=== PATIENT | female | born 1950 | race Caucasian/White ===

== ENCOUNTER 2021-04-13 11:47 | Outpatient (CLI) | payer MEDICARE, MEDICAID, SELFPAY ==
[2021-04-13 13:52] LABS: Add Urine Microscopic? NO; Appearance Urine Clear (Clear); Bilirubin Urine Negative (Negative); Blood Urine Negative (Negative); Color Urine Yellow (Yellow); Glucose Urine UA Negative (Negative); Ketones Urine Negative (Negative); Leukocyte Esterase Ur Negative LEU/UL (Negative); Nitrate Urine Negative (Negative); Protein Urine Negative (Negative); Specific Grav Ur 1.018 (1.001-1.035); Urobilinogen Urine Negative mg/dL (<2.0)
[2021-04-13 14:15] LABS: Prothrombin Time 13.1 Seconds (11.1-14.7)
[2021-04-13 14:23] LABS: Urine Cotinine NEGATIVE
== END 2021-04-13 11:48 | disposition home or self-care (01) ==
LOC: ANHSURGERY 11:56
PROVIDERS: PCP Internal Medicine; Visit Provider Orthopaedic Surgery
DX: Z01.812 Encounter for preprocedural laboratory examination (principal); M17.11 Unilateral primary osteoarthritis, right knee; Z51.81 Encounter for therapeutic drug level monitoring; Z79.899 Other long term (current) drug therapy
CPT/HCPCS: 80307; 81003; 85610; 85730; 86850; 86900; 86901; 87081

== ENCOUNTER 2021-04-26 13:49 | Inpatient (IN) | payer MEDICARE, MEDICAID, SELFPAY ==
[2021-04-13 12:41] VITALS: BMI 39.6
--- NOTE | 2021-04-24 14:14 | WPDANESEPPF ---
Anes - Initial Pre Proc Eval Procedure: Operation Date: 04/25/21 11:30 Proposed Procedures p Right Total Knee Arthroplasty, Right Wrist First Dorsal Compartment Injection - Monster Toure MD Date/Time: 04/24/21 14:14 Surgeon: Monster Toure MD Pre Op Diagnosis: Right knee DJD, Dequervains Tenosynovitis Patient Data Age: 70 Gender: F Height: 1.57 m Weight: 98.4 kg Allergies Allergy/AdvReac Type Severity Reaction Status Date / Time lisinopril Allergy Severe RASH Verified 04/25/21 09:46 Sulfa (Sulfonamide Allergy Severe RASH Verified 04/25/21 09:46 Antibiotics) acetaminophen Allergy Unknown SWELLING & Verified 04/25/21 09:46 ITCHING FEET hydrochlorothiazide Allergy Unknown unknown Verified 04/25/21 09:46 Home Medications Medication Instructions Recorded Confirmed Type aspirin 81 mg chewable tablet 81 mg PO DAILY 04/12/20 04/25/21 History chlorthalidone 50 mg tablet 50 mg PO QAM 04/12/20 04/25/21 History famotidine 40 mg tablet 40 mg PO BID 04/12/20 04/25/21 History gabapentin 300 mg capsule 300 mg PO QAM cap 04/12/20 04/25/21 History lovastatin 10 mg tablet 10 mg PO QPM 04/12/20 04/25/21 History metformin 500 mg tablet 500 mg PO DAILY 04/12/20 04/25/21 History metoprolol tartrate 25 mg tablet 25 mg PO BID 04/12/20 04/25/21 History nifedipine 90 mg tablet,extended 90 mg PO QAM 04/12/20 04/25/21 History release spironolactone 50 mg tablet 50 mg PO QAM 04/12/20 04/25/21 History topiramate 50 mg capsule,extended 50 mg PO BID cap 04/12/20 04/25/21 History release 24 hr cholecalciferol (vitamin D3) 50 mcg PO DAILY 04/13/21 04/25/21 History gabapentin 600 mg PO HS 04/13/21 04/25/21 History ibuprofen 600 mg PO HS PRN 04/13/21 04/25/21 History oxybutynin chloride 10 mg PO QAM 04/13/21 04/25/21 History Patient hx anesthesia problems: none Family hx anesthesia problems: none PMFSH Past Medical History Medical History (Updated 04/24/21 @ 14:16 by Xiang Fisher MD) Diabetes HTN (hypertension) Hyperlipidemia Obesity BINH (obstructive sleep apnea) Osteoarthritis Surgical History Surgical History Hx of total knee arthroplasty S/P right knee arthroscopy Family History Family History Other Cerebrovascular accident Diabetes mellitus Family history of cardiovascular disease Family history of malignant neoplasm Hypertension Social History Social History (Updated 02/27/21 @ 15:10 by Monica Mina MA) Alcohol intake: current Alcohol use details: SOCIAL DRINKER IN PAST Substance use: never Living arrangements: with family Additional living arrangements comments: EX- Gender identity (if verbalized by the patient): Female Spiritual care concerns: No Anes - Eval Final PreProcedure Day of Procedure 04/24/21 14:14 Patient weight: obese Heart: regular rate and rhythm Lungs: clear to auscultation and normal air movement Airway: Mallampati scale class II Neurological: alert and oriented Last oral intake: >/= 8 hours ASA classification: III Emergent: no Anesthetic plan: proceed Anesthesia type and monitoring: general LMA Informed Consent: The patient's anesthetic plan and its attendant risks and benefits were discussed with the patient/family/POA. Questions were solicited and answers provided to the satisfaction of the patient/family/POA.
[2021-04-25] VITALS (15 sets, daily range): BP systolic 111–140; BP diastolic 55–82; PULSE 51–88; RESP 10–21; TEMP 36.3–36.6; O2SAT 95–100
--- NOTE | 2021-04-25 08:28 | WPDHPUPDATE1 ---
History and Physical Update Update Date/Time: 04/25/21 08:28 History and Physical has been reviewed, including an updated exam of the patient. There are NO changes in the patient's condition. Risks, benefits, and alternatives have been discussed and questions answered. Patient agrees to proceed with procedure.
[2021-04-25] MEDS: LACTATED RINGERS 1,000 ML 30 ML IV CONT ×2 (10:10→13:42)
[2021-04-25] MEDS: TRANEXAMIC ACID 1,000MG/ISO100 1,000 MG/100 ML BAG 200 MG IVPB (10:12)
[2021-04-25 10:18] LABS: Glucose Point of Care 103 mg/dl (65-105)
--- NOTE | 2021-04-25 11:08 | WPDANESPNB ---
Anes - Peripheral Nerve Block Date/Time: 04/25/21 11:08 I have discussed with the patient/family/POA the placement of a peripheral nerve block for post-operative pain management, including associated risks, benefits, complications, and side effects. Alternative methods of post-operative analgesia were detailed. Questions were solicited and answers provided to the satisfaction of the patient/family/POA. Time-Out: A pre-procedural Time-Out was completed immediately before starting the procedure and confirmed: Patient Identification, Site, Procedure, Patient Position and the Availability of Requisite Equipment. Clinical Indications: Acute post-operative pain management requested by the operative surgeon. Nerve Block Insertion Note Anes-nerve block: adductor canal right Patient position: supine Skin prep: chlorhexidine Needle: 22 gauge, stimulating, insulated echogenic needle. Needle length: 80 mm Technique: ultrasound Technique comment: in plane Injectate: bupivacaine 0.5% with epi 5 mcg/ml (20cc) Observations: tolerated well Complications: none Procedure start time:: 1115 Procedure end time:: 1120
[2021-04-25] MEDS: ceFAZolin 2 GM/D5W 50 ML 2 GM/50 ML BAG IVPB ×2 (11:23→19:53)
--- NOTE | 2021-04-25 13:44 | W.PM.PROC2 ---
Procedure Note - Detailed Date of Procedure 04/25/21 Pre-op Diagnosis Right knee DJD, Dequervains Tenosynovitis Post-op Diagnosis same Procedure Performed R TKA INJECTION RIGHT THUMB Surgeon Monster Toure MD Anesthesia general Description of Procedure THE RIGHT KNEE WAS PREPPED AND DRAPED IN THE STERILE FASHION. THERE WAS A 10 DEGREE FLEXION CONTRACTURE. A MIDLINE SKIN INCISION WAS MADE. A MEDIAL PARAPATELLAR ARTHROTOMY WAS MADE. THE PATELLA WAS EVERTED. THERE WAS TRICOMPARTMENT DJD. THERE WAS MINIMAL PATELLA DJD. AN INTRAMEDULLARY LARY WAS PLACED IN THE FEMUR. A DISTAL FEMORAL CUT WAS MADE IN 5 DEGREES OF VALGUS REMOVING APPROXIMATELY 9 MM OF BONE FROM THE DISTAL FEMUR. THE FEMUR WAS SIZED TO 62.5. A 62.5 FEMORAL CUTTING BLOCK WAS PLACED IN 3 DEGREES OF EXTERNAL ROTATION AND IN ALIGNMENT WITH TREVIN'S LINE AND THE TRANSEPICONDYLAR AXIS. ANTERIOR POSTERIOR AND CHAMFER CUTS WERE MADE. THE CUTS WERE EXCELLENT. NEXT AN INTRAMEDULLARY CUTTING GUIDE WAS PLACED IN THE TIBIA. A TRANS TIBIAL CUT WAS MADE ALONG THE LONG AXIS OF THE TIBIA. APPROXIMATELY 10 MM OF BONE WAS REMOVED FROM THE HIGH SIDE OF THE TIBIA. THE TIBIA WAS THEN PLANED TO A SMOOTH SURFACE. POSTERIOR FEMORAL OSTEOPHYTES WERE REMOVED FROM THE FEMORAL CONDYLES. A 71 TIBIAL TRIAL WAS PLACED IN ALIGNMENT WITH THE 1/3 MEDIAL ASPECT OF THE TIBIAL TUBERCLE. THEN A 62.5 FEMORAL TRIAL COMPONENT WAS PLACED. BOTH HAD EXCELLENT FITS. EVENTUALLY A 10 MM CR POLYETHYLENE TRIAL COMPONENT WAS PLACED. THE KNEE WAS TAKEN THROUGH A RANGE OF MOTION. THE KNEE CAME OUT TO FULL EXTENSION. THERE WAS NO ABNORMAL TILT TO THE PATELLA. THERE WAS GOOD A/P AND VARUS/VALGUS STABILITY. THERE WAS NO EXCESSIVE ROLL BACK WITH FLEXION. THE TRIAL COMPONENTS WERE REMOVED. THEN A 62.5 FEMORAL COMPONENT AND 71 TIBIAL COMPONENT WITH A 10 CR POLYETHYLENE COMPONENT WERE CEMENTED INTO PLACE. ONCE THE CEMENT WAS HARD THE KNEE WAS TAKEN THROUGH A ROM AGAIN AND FOUND TO BE STABLE WITH NO PATELLA TILT NO EXCESSIVE ROLL BACK WITH FLEXION AND GOOD STABILITY WITH COMPLETE AND FULL EXTENSION. THE KNEE WAS IRRIGATED WITH STERILE BETADINE AND WATER FOR ABOUT 3 MINUTES. THE BLEEDERS WERE CAUTERIZED. THE ARTHROTOMY WAS REPAIRED WITH NUMBER 1 VICRYL. THE SUB CUTANEOUS LAYER WITH 2-0 VICRYL AND THE SKIN WITH CATARINA. THE WOUND WAS WASHED AND A STERILE DRESSING WAS APPLIED. NEXT THE RIGHT 1ST DORSAL COMPARTMENT OF THE THUMB WAS PREPPED AND INJECTED WITH DEPO MEDROL 80 MG 1 CC AND 1 CC OF LIDOCAINE 1%. PATIENT WAS EXTUBATED. Estimated Blood Loss -150.0 Pathology none sent Complications No immediate complications Condition stable Disposition PACU
[2021-04-25] MEDS: fentaNYL CITRATE INJ (*CRX) 100 MCG/2 ML VIAL 25 MCG IV PUSH ×5 (13:59→14:41)
[2021-04-25 14:27] LABS: Glucose Point of Care 130 mg/dl (65-105)
--- NOTE | 2021-04-25 16:00 | ADMGEN ---
This patient, Twila Oliva, was admitted to Medical Room 254-01. Patient/family oriented to hospital policies and general routines including ID bracelet, bed and alarms, visiting hours, pain management, procedures, bathroom and other care routines, personal items, smoking policy, room service/diet, and visiting hours. Information on how to activate the Rapid Response Team has been discussed. Patient/Family are encouraged to report perceived risks to care and to ask questions if they do not understand what they are told or what they should do.
--- NOTE | 2021-04-25 16:15 | WPDCN ---
Assessment and Plan Assessment and plan (1) Right knee DJD: Qualifiers: Osteoarthritis type: primary Qualified Code(s): M17.11 - Unilateral primary osteoarthritis, right knee Code(s): M17.11 - Unilateral primary osteoarthritis, right knee Status: Acute Assessment and Plan: Postoperative day 0 status post right total knee replacement. Wound care, pain control, and DVT prophylaxis deferred to Dr. Toure. PT/OT consulted. Initiate fall precautions. Repeat hemoglobin and hematocrit in a.m. (2) Type 2 diabetes mellitus: Code(s): E11.9 - Type 2 diabetes mellitus without complications Status: Acute Assessment and Plan: Resume metformin on discharge. Check hemoglobin A1c. Initiate sliding scale insulin, Accu-Cheks, and hypoglycemic protocol. (3) Hypertension: Code(s): I10 - Essential (primary) hypertension Status: Acute Assessment and Plan: Blood pressures were reviewed and they are stable postoperatively. Continue antihypertensives and monitor daily. (4) Obstructive sleep apnea on CPAP: Code(s): G47.33 - Obstructive sleep apnea (adult) (pediatric); Z99.89 - Dependence on other enabling machines and devices Status: Acute Assessment and Plan: CPAP will be provided for the patient to use while hospitalized. (5) Hyperlipidemia: Code(s): E78.5 - Hyperlipidemia, unspecified Status: Acute Assessment and Plan: Continue statin and check LFTs. (6) Gastroesophageal reflux disease: Code(s): K21.9 - Gastro-esophageal reflux disease without esophagitis Status: Acute Assessment and Plan: No acute issues. Continue famotidine. (7) De Quervain's disease (tenosynovitis): Code(s): M65.4 - Radial styloid tenosynovitis [de Quervain] Status: Acute Assessment and Plan: Status post injection to right thumb/wrist. Additional Plan Thank you for allowing us to participate in this patient's care. Please do not hesitate to contact us with any questions. Supervising physician for this medical consultation is Dr. Moncho Scruggs. HPI Data of Consult Date/Time: 04/25/21 16:15 Requesting Physician: Monster Toure MD Primary Care Provider: Micky Whitfield, Consult Narrative Narrative: This is a 70-year-old female with degenerative joint disease of the right knee status post elective right total knee arthroplasty today whom the hospitalist service has been consulted for management of her medical conditions postoperatively. Her medical history is also significant for bsx-xbboavi-mohbbvufv diabetes, hypertension, hyperlipidemia, GERD, and obstructive sleep apnea. She has had longstanding pain in her right knee not amenable to conservative outpatient treatment thus she elected for replacement today. Her surgery was performed under general anesthesia with no immediate complications documented an estimated blood loss of 150 mL. She also had an injection in her right thumb/wrist for de Quervain tenosynovitis. At the time my evaluation the patient is eating a late lunch and she has no specific complaints. Her pain is pretty well controlled and she has been up with the Lisa Steady to the bathroom without issue. She has not had fever, chills, sweats, chest pain, shortness of breath, nausea, or vomiting. No paresthesias, skin color, or temperature changes distal to the surgical site. Review of Systems Review of Systems: Narrative: Twelve systems were reviewed with pertinent positives and negatives as per HPI. No recent cold or flu symptoms. No exposure to those positive for COVID-19. Her diabetes is well controlled with a recent hemoglobin A1c of 5.9%. Except as documented, all other systems were reviewed and are negative. [facility] Past Medical History Medical History (Updated 04/25/21 @ 21:30 by Jake
[2021-04-25] MEDS: LOVASTATIN 10 MG TABLET PO (17:39)
[2021-04-25] MEDS: TOPIRAMATE 25 MG TABLET 50 MG PO (17:39)
[2021-04-25] MEDS: oxyCODONE HCL (*CRX) 5 MG TAB IR 10 MG PO (18:00)
[2021-04-25 18:15] LABS: Hemoglobin A1C 5.9 % (<5.7)
[2021-04-25 18:40] LABS: Glucose Point of Care 114 mg/dl (65-105)
[2021-04-25] MEDS: METOPROLOL TARTRATE 25 MG TABLET PO (20:39)
[2021-04-25] MEDS: GABAPENTIN 300 MG CAPSULE 600 MG PO (20:39)
[2021-04-25] MEDS: DOCUSATE SODIUM 100 MG CAPSULE PO (20:39)
[2021-04-25] MEDS: ASPIRIN 325 MG ENTERIC TABLET PO (20:39)
[2021-04-25] MEDS: FAMOTIDINE 20 MG TABLET 40 MG PO (20:40)
[2021-04-25 21:15] LABS: Glucose Point of Care 145 mg/dl (65-105)
[2021-04-25] MEDS: oxyCODONE/ACETAMINOPHEN (*CRX) 5-325 MG TABLET 1 TABLET PO (22:08)
[2021-04-26] VITALS (10 sets, daily range): BP systolic 121–138; BP diastolic 48–66; PULSE 61–79; RESP 16–20; TEMP 36.1–37; O2SAT 94–100
--- NOTE | ~2021-04-26 | XR_ITS ---
EXAMINATION: XR knee RT 2V DATE: 04/25/2021 13:53 INDICATION: Total right knee arthroplasty. Postop. TECHNIQUE: 2 views of right knee were obtained. COMPARISON: Right knee radiographs 02/27/2021 FINDINGS: There is a total right knee arthroplasty without patellar resurfacing in near-anatomic alig nment. No fracture. There is gas in the knee joint and soft tissues, consistent with recent surgery. Anterior skin mariah are noted. IMPRESSION: 1. Total right knee arthroplasty in near-anatomic alignment. Reviewed, dictated and finalized at location A.
[2021-04-26] MEDS: ceFAZolin 2 GM/D5W 50 ML 2 GM/50 ML BAG IVPB ×2 (04:10→11:24)
[2021-04-26] MEDS: oxyCODONE/ACETAMINOPHEN (*CRX) 5-325 MG TABLET 1 TABLET PO ×3 (04:12→17:18)
[2021-04-26 05:49] LABS: Basophils Percent Auto 0.1 % (0.2-1.2); Eosinophils Percent Auto 0.1 % (0-4.4); Hematocrit 37.2 % (37.0-47.0); Hemoglobin 11.9 g/dL (12.0-15.0); Immature Granulocyte Absolute 0.02 K/mm3 (0.00-0.031); Immature Granulocyte Percent A 0.2 % (0-0.5); Lymphocytes Absolute Auto 1.62 K/mm3 (0.9-3.2); Lymphocytes Percent Auto 19.3 % (18.3-44.2); Mean Corpuscular Hemoglobin 28.4 pg (26-34); Mean Corpuscular Volume 88.8 fl (80-100); Mean Platelet Volume 10.7 fl (7.4-10.4); Monocytes Absolute Auto 0.7 K/mm3 (0.1-0.6); Monocytes Percent Auto 8.7 % (2.6-8.5); Neutrophils Percent Auto 71.6 % (45.5-73.1); Platelet Count Result 181 k/mm3 (150-375); Red Blood Count 4.19 M/mm3 (4.2-5.4); Red Cell Distribution Width 13.8 % (11.5-14.5); White Blood Count 8.4 K/mm3 (4.5-10.0)
[2021-04-26 06:03] LABS: Alanine Aminotransferase 16 U/L (4-35); Albumin Level 3.6 g/dL (3.5-5.1); Alkaline Phosphatase 85 U/L (38-126); Anion Gap 7 mmol/L (8-16); Aspartate Amino Transferase 23 U/L (14-36); Bilirubin,Total 0.2 mg/dL (0.2-1.3); Blood Urea Nitrogen 18 mg/dL (7-17); Calcium 8.6 mg/dL (8.4-10.2); Carbon Dioxide 26 mmol/L (22-30); Chloride 104 mmol/L (98-107); Estimated CRCL calculation 47 ml/min; Estimated Glomerular Filt Rate 49; Glucose 124 mg/dL (65-105); Magnesium 1.6 mg/dL (1.6-2.3); Potassium 3.6 mmol/L (3.4-5.0); Sodium 137 mmol/L (137-145)
[2021-04-26 08:26] LABS: Glucose Point of Care 126 mg/dl (65-105)
[2021-04-26] MEDS: TOPIRAMATE 25 MG TABLET 50 MG PO ×2 (08:32→17:18)
[2021-04-26] MEDS: MAGNESIUM SULF 2 GM/WATER 50ML 2 GM/50 ML BAG IVPB (08:32)
[2021-04-26] MEDS: NIFEdipine 30 MG TAB.ER.24 90 MG PO (08:33)
[2021-04-26] MEDS: GABAPENTIN 300 MG CAPSULE PO (08:33)
[2021-04-26] MEDS: CHLORTHALIDONE 25 MG TABLET 50 MG PO (08:33)
[2021-04-26] MEDS: FAMOTIDINE 20 MG TABLET 40 MG PO ×2 (08:33→20:11)
[2021-04-26] MEDS: metFORMIN HCL 500 MG TABLET PO (08:34)
[2021-04-26] MEDS: DOCUSATE SODIUM 100 MG CAPSULE PO ×2 (08:34→20:12)
[2021-04-26] MEDS: ASPIRIN 325 MG ENTERIC TABLET PO ×2 (08:34→20:12)
[2021-04-26] MEDS: SPIRONOLACTONE 50 MG TABLET PO (08:34)
[2021-04-26] MEDS: METOPROLOL TARTRATE 25 MG TABLET PO ×2 (08:36→20:11)
[2021-04-26] MEDS: CHOLECALCIFEROL 1,000 UNITS TABLET 2000 UNITS PO (09:55)
--- NOTE | 2021-04-26 12:08 | PM.IMPN ---
Progress Note: A&P Assessment and Plan (1) Right knee DJD: Qualifiers: Osteoarthritis type: primary Qualified Code(s): M17.11 - Unilateral primary osteoarthritis, right knee Code(s): M17.11 - Unilateral primary osteoarthritis, right knee Status: Acute Assessment and Plan: POD#1 s/p right total knee replacement. Wound care, pain control, and DVT prophylaxis per orthopedic service. (2) Type 2 diabetes mellitus: Qualifiers: Diabetes mellitus shelter insulin use: without exterminator termite use Diabetes mellitus complication status: without complication Qualified Code(s): E11.9 - Type 2 diabetes mellitus without complications Code(s): E11.9 - Type 2 diabetes mellitus without complications Status: Acute Assessment and Plan: A1c 5.9%. Resume metformin at discharge. Continue to monitor with accu-cheks and adjust treatment as needed, cover with SSI. (3) Hypertension: Qualifiers: Hypertension type: unspecified Qualified Code(s): I10 - Essential (primary) hypertension Code(s): I10 - Essential (primary) hypertension Status: Acute Assessment and Plan: BPs reviewed, stable. Continue home metoprolol, spironolactone. Monitor BP and adjust treatment as needed. (4) Obstructive sleep apnea on CPAP: Code(s): G47.33 - Obstructive sleep apnea (adult) (pediatric); Z99.89 - Dependence on other enabling machines and devices Status: Acute Assessment and Plan: CPAP. (5) Hyperlipidemia: Qualifiers: Hyperlipidemia type: unspecified Qualified Code(s): E78.5 - Hyperlipidemia, unspecified Code(s): E78.5 - Hyperlipidemia, unspecified Status: Chronic Assessment and Plan: Continue home statin therapy. (6) Gastroesophageal reflux disease: Qualifiers: Esophagitis presence: without esophagitis Qualified Code(s): K21.9 - Gastro-esophageal reflux disease without esophagitis Code(s): K21.9 - Gastro-esophageal reflux disease without esophagitis Status: Acute Assessment and Plan: No acute issues. Continue famotidine. (7) De Quervain's disease (tenosynovitis): Code(s): M65.4 - Radial styloid tenosynovitis [de Quervain] Status: Chronic Assessment and Plan: Status post injection to right thumb/wrist. Subjective Date/time seen: 04/26/21 1145 Interval history: Ms. Oliva is a 70yo F seen in follow up POD#1 s/p right total knee arthroplasty. She is doing okay today but feels tired after working with therapy. She notes her right knee pain is pretty well-controlled at this time at rest. Ate some breakfast. No chest pain or shortness of breath, nausea or vomiting. Review of Systems Review of Systems: All systems reviewed & are unremarkable except as noted in HPI and below Exam Narrative: Exam Narrative: General: Well-developed female sitting up in bed eating lunch in no distress. HEENT: Wearing glasses. EOMI. Sclerae anicteric. Oral mucosa moist. Neck: Supple. Respiratory: Lungs are clear to auscultation bilaterally. Cardiovascular: Regular rate and rhythm with S1-S2. Gastrointestinal: Abdomen is soft, nontender, and nondistended with positive bowel sounds. Skin: Warm and dry. No rash or lesions on limited exam. Extremities: No cyanosis, clubbing, or significant edema. Radial and pedal pulses intact. Musculoskeletal: Right knee dressing noted. Ice pack to right knee. Right lower extremity is neurovascularly intact distal to the surgical site. Neurological: Alert. Cranial nerves 2-12 grossly intact. No gross focal deficits to casual conversation. Psychiatric: P
[2021-04-26 12:12] LABS: Glucose Point of Care 112 mg/dl (65-105)
--- NOTE | 2021-04-26 16:52 | PM.PNORT ---
Progress Note: A&P Additional Plan POD 1 DOING WELL. STILL NEEDS MORE PT. POSSIBLE DC TMRW. Subjective Subjective Date/Time Seen: 04/26/21 16:52 POD 1 DOING WELL. NO CALF PAIN Exam Extrem: Other: VSS AFEBRILE DRESSING DRY NV INTACT NEG HOMANS SIGN Objective Data Vital Signs Vital Signs: Vital Signs - 24 hr 04/25/21 17:25 04/25/21 20:39 04/25/21 21:25 Temperature 36.4 C L 36.3 C L Pulse Rate 86 64 67 Respiratory Rate 16 20 Blood Pressure 129/58 L 125/55 L Pulse Oximetry 98 98 04/25/21 22:47 04/26/21 01:00 04/26/21 04:59 Temperature 36.1 C L 36.4 C L Pulse Rate 71 62 66 Respiratory Rate 21 H 20 20 Blood Pressure 138/66 135/59 L Pulse Oximetry 97 98 100 04/26/21 06:00 04/26/21 08:36 04/26/21 10:00 Temperature 36.4 C L 36.8 C Pulse Rate 66 64 61 Respiratory Rate 20 16 Blood Pressure 135/59 L 129/59 L Pulse Oximetry 100 96 04/26/21 14:00 Temperature 36.3 C L Pulse Rate 69 Respiratory Rate 16 Blood Pressure 121/57 L Pulse Oximetry 96 Intake/Output Intake/Output: Intake & Output 04/23/21 04/24/21 04/25/21 04/26/21 23:59 23:59 23:59 23:59 Intake Total 760 360 Output Total 300 300 Balance 460 60 Meds/Results Medications: Active Medications Generic Name Dose Route Start Last Admin Trade Name Freq PRN Reason Stop Dose Admin Acetaminophen 1,000 mg 04/25/21 15:40 Acetaminophen 500 Mg Tablet PO Q6H PRN Pain Rated 1-3 Aspirin 325 mg 04/25/21 21:00 04/26/21 08:34 Aspirin 325 Mg Enteric Tablet PO 325 mg Q12HR JADIEL Administration Chlorthalidone 50 mg 04/26/21 09:00 04/26/21 08:33 Chlorthalidone 25 Mg Tablet PO 05/26/21 09:01 50 mg QAM JADIEL Administration Dextrose 12.5 gm 04/25/21 16:37 Dextrose 50% 25 Gm/50 Ml Syringe IV PUSH PRN PRN Hypoglycemia Protocol Diazepam 5 mg 04/25/21 15:40 Diazepam (*Crx) 5 Mg Tablet PO Q8H PRN Spasms Diphenhydramine HCl 25 mg 04/25/21 15:40 Diphenhydramine Hcl Inj 50 Mg/Ml Vial IV PUSH Q6H PRN Itching Docusate Sodium 100 mg 04/25/21 21:00 04/26/21 08:34 Docusate Sodium 100 Mg Capsule PO 100 mg Q12HR JADIEL Administration Famotidine 40 mg 04/25/21 21:00 04/26/21 08:33 Famotidine 20 Mg Tablet PO 40 mg Q12HR JADIEL Administration Gabapentin 300 mg 04/26/21 09:00 04/26/21 08:33 Gabapentin 300 Mg Capsule PO 300 mg QAM JADIEL Administration Gabapentin 600 mg 04/25/21 21:00 04/25/21 20:39 Gabapentin 300 Mg Capsule PO 600 mg HS JADIEL Administration Glucagon 1 mg 04/25/21 16:37 Glucagon For Inj 1 Mg Vial IM PRN PRN Hypoglycemia Protocol Glucose 15 gm 04/25/21 16:37 Glucose Oral Gel 15 Gm Of Glucse In 37.5 Gm Tube PO PRN PRN Hypoglycemia Protocol Dextrose 1,000 mls @ 100 mls/hr 04/25/21 16:37 Dextrose 5% 1,000 Ml IVPB PRN PRN Hypoglycemia Protocol Insulin Aspart 2 - 5 units 04/25/21 17:00 04/26/21 12:15 Insulin Aspart (*Bkc) 100 Units/Ml SUB-Q Not Given TIDWM JADIEL Protocol Lovastatin 10 mg 04/25/21 18:00 04/25/21 17:39 Lovastatin 10 Mg Tablet PO 10 mg QPM JADIEL Administration Metformin HCl 500 mg 04/26/21 08:00 04/26/21 08:34 Metformin Hcl 500 Mg Tablet PO 500 mg DAILY@0800 JADIEL Administration Metoprolol Tartrate 25 mg 04/25/21 21:00 04/26/21 08:36 Metoprolol Tartrate 25 Mg Tablet PO 25 mg Q12HR JADIEL Administration Naloxone HCl 0.1 mg 04/25/21 15:40 Naloxone Hcl 0.4 Mg/Ml Vial IV PUSH Q2M PRN Opiate Reversal Nifedipine 90 mg 04/26/21 09:00 04/26/21 08:33 Nifedipine 30 Mg Tab.Er.24 PO 90 mg QAM JADIEL Administration Ondansetron HCl 4 mg 04/25/21 15:40 Ondansetron Inj 4 Mg/2 Ml Vial IV PUSH Q4H PRN Nausea And Vomiting Oxybutynin Chloride 10 mg 04/26/21 09:00 04/26/21 08:34 Oxybutynin Chloride Xl 5 Mg Tab.Er.24 PO 10 mg QAM JADIEL Administration Oxycodone HCl
[2021-04-26 17:12] LABS: Glucose Point of Care 112 mg/dl (65-105)
[2021-04-26] MEDS: LOVASTATIN 10 MG TABLET PO (17:18)
[2021-04-26] MEDS: GABAPENTIN 300 MG CAPSULE 600 MG PO (20:12)
[2021-04-26 21:00] LABS: Glucose Point of Care 118 mg/dl (65-105)
[2021-04-27] VITALS (8 sets, daily range): BP systolic 119–139; BP diastolic 48–59; PULSE 62–100; RESP 18–21; TEMP 36.8–36.9; O2SAT 93–98
[2021-04-27] MEDS: ASPIRIN 325 MG ENTERIC TABLET PO ×2 (09:43→21:00)
[2021-04-27] MEDS: metFORMIN HCL 500 MG TABLET PO (09:43)
[2021-04-27] MEDS: CHLORTHALIDONE 25 MG TABLET 50 MG PO (09:44)
[2021-04-27] MEDS: DOCUSATE SODIUM 100 MG CAPSULE PO ×2 (09:44→21:03)
[2021-04-27] MEDS: CHOLECALCIFEROL 1,000 UNITS TABLET 2000 UNITS PO (09:44)
[2021-04-27] MEDS: FAMOTIDINE 20 MG TABLET 40 MG PO ×2 (09:44→21:00)
[2021-04-27] MEDS: SPIRONOLACTONE 50 MG TABLET PO (09:45)
[2021-04-27] MEDS: NIFEdipine 30 MG TAB.ER.24 90 MG PO (09:45)
[2021-04-27] MEDS: GABAPENTIN 300 MG CAPSULE PO (09:45)
[2021-04-27] MEDS: METOPROLOL TARTRATE 25 MG TABLET PO ×2 (09:46→21:01)
[2021-04-27] MEDS: oxyCODONE HCL (*CRX) 5 MG TAB IR 10 MG PO (10:04)
[2021-04-27 10:21] LABS: Glucose Point of Care 105 mg/dl (65-105)
--- NOTE | 2021-04-27 11:02 | PM.PNORT ---
Progress Note: A&P Assessment and Plan (1) S/P total knee arthroplasty: Qualifiers: Laterality: right Qualified Code(s): Z96.651 - Presence of right artificial knee joint Code(s): Z96.659 - Presence of unspecified artificial knee joint Status: Acute Assessment and Plan: POD #2: Right TKA Continue PT/OT. WBAT. Walker. HIGH FALL RISK. Continue pain control. Ice knee. No pillows directly under knee. Continue DVT prophylaxis. SCDs. Incentive spirometry. Monitor dressing. Change prior to discharge. Dispo: Home with Home Health vs. Acute Rehab given slow progress with PT/OT. Subjective Subjective Date/Time Seen: 04/27/21 1045 POD #2: Right TKA Patient reports improvement in pain today. She is having difficulty with stair climbing. Slow progress with PT and OT due to fear of stair climbing. She does have 5 stairs to get into her home per patient report. She did go to acute rehab status post left total knee arthroplasty and progressed quite well. Now with some concern to go home independently. Review of Systems Review of Systems: All systems reviewed & are unremarkable except as noted in HPI and below Constitutional: Constitutional: Denies fever(s) and Denies headache(s) ENT: Denies headache(s) Cardiovascular: Cardiovascular: Denies chest pain, Denies diaphoresis, Denies palpitations and Denies dyspnea Respiratory: Respiratory: Denies dyspnea Gastrointestinal: Gastrointestinal: Denies abdominal pain, Denies constipation, Denies nausea and Denies vomiting Genitourinary: Genitourinary: Reports nocturia and Denies dysuria Musculoskeletal: Musculoskeletal: Reports arthralgias (Right Knee ) and Reports joint swelling (Right Knee ) Neurologic: Denies headache(s) Endocrine: Endocrine: Denies palpitations Exam Const: General: comfortable and no acute distress Resp: Effort & Inspection: normal respiratory effort Cardio: Rate: regular rate Rhythm: regular rhythm GI: GI Palp: Yes Soft to palpation, No Tenderness to palpation present (GI) and No Guarding due to palpation present (GI) Skin: Wounds: wounds noted Other: Incision c/d/i. No surrounding redness/warmth. No hematoma. Mild ecchymosis. No wound dehiscence Neuro: Cognition (Neuro): normal cognition Other: NV intact aside from block. Moves toes. Sensation intact to light touch. +ankle dorsiflexion/plantarflexion. Extrem: Right upper extremity: normal to inspection, full ROM and normal capillary refill Left upper extremity: normal to inspection, full ROM and normal capillary refill Right lower extremity: normal to inspection, full ROM (ROM limited due to recent surgical intervention ) and knee Details: tenderness (diffuse, mild ) and swelling (diffuse, mild ) Left lower extremity: normal to inspection Psych: Mental Status: mental status grossly normal Objective Data Vital Signs Vital Signs: Vital Signs - 24 hr 04/26/21 14:00 04/26/21 20:00 04/26/21 20:11 Temperature 36.3 C L Pulse Rate 69 72 78 Respiratory Rate 16 20 Blood Pressure 121/57 L Pulse Oximetry 96 98 04/26/21 20:55 04/26/21 22:35 04/27/21 05:01 Temperature 37.0 C 36.8 C Pulse Rate 72 79 69 Respiratory Rate 20 20 20 Blood Pressure 124/48 L 119/49 L Pulse Oximetry 98 94 97 04/27/21 09:46 04/27/21 10:16 04/27/21 10:36 Temperature Pulse Rate 62 62 Respiratory Rate 20 Blood Pressure Pulse Oximetry 93 93 Intake/Output Intake/Output: Intake & Output 04/24/21 04/25/21 04/26/21 04/27/21 23:59 23:59 23:59 23:59 Intake Total 760 846 290 Output Total 300 1200 Balance 460 -354 290 Meds/Results Medications: Active Medications Generic Name Dose Route Start Last Admin Trade Name Freq PRN Reason Stop Dose Admin Acetaminophen 1,000 mg 04/25/21 15:40 Acetaminophen 500 Mg Tablet PO Q6H PRN Pain Rated 1-3 Aspirin 325 mg 04/25/21 21:00 04/27/21 09:43 Aspirin 325 Mg Enteric Tablet PO
[2021-04-27] MEDS: TOPIRAMATE 25 MG TABLET 50 MG PO ×2 (11:50→16:53)
[2021-04-27 12:14] LABS: Glucose Point of Care 130 mg/dl (65-105)
--- NOTE | 2021-04-27 14:38 | PM.IMPN ---
Progress Note: A&P Assessment and Plan (1) Right knee DJD: Qualifiers: Osteoarthritis type: primary Qualified Code(s): M17.11 - Unilateral primary osteoarthritis, right knee Code(s): M17.11 - Unilateral primary osteoarthritis, right knee Status: Acute Assessment and Plan: POD#2 s/p right total knee replacement. Wound care, pain control, and DVT prophylaxis per orthopedic service. Patient says she's slept all day and can't remember anything . Would try to limit narcotics if possible. (2) Type 2 diabetes mellitus: Qualifiers: Diabetes mellitus terminal gauger insulin use: without terminal gauger use Diabetes mellitus complication status: without complication Qualified Code(s): E11.9 - Type 2 diabetes mellitus without complications Code(s): E11.9 - Type 2 diabetes mellitus without complications Status: Acute Assessment and Plan: A1c 5.9%. Resume metformin at discharge. Continue to monitor with accu-cheks and adjust treatment as needed, cover with SSI. (3) Hypertension: Qualifiers: Hypertension type: unspecified Qualified Code(s): I10 - Essential (primary) hypertension Code(s): I10 - Essential (primary) hypertension Status: Acute Assessment and Plan: BPs reviewed, stable. Continue home metoprolol, spironolactone. Monitor BP and adjust treatment as needed. (4) Obstructive sleep apnea on CPAP: Code(s): G47.33 - Obstructive sleep apnea (adult) (pediatric); Z99.89 - Dependence on other enabling machines and devices Status: Acute Assessment and Plan: CPAP. (5) Hyperlipidemia: Qualifiers: Hyperlipidemia type: unspecified Qualified Code(s): E78.5 - Hyperlipidemia, unspecified Code(s): E78.5 - Hyperlipidemia, unspecified Status: Chronic Assessment and Plan: Continue home statin therapy. (6) Gastroesophageal reflux disease: Qualifiers: Esophagitis presence: without esophagitis Qualified Code(s): K21.9 - Gastro-esophageal reflux disease without esophagitis Code(s): K21.9 - Gastro-esophageal reflux disease without esophagitis Status: Acute Assessment and Plan: No acute issues. Continue famotidine. (7) De Quervain's disease (tenosynovitis): Code(s): M65.4 - Radial styloid tenosynovitis [de Quervain] Status: Chronic Assessment and Plan: Status post injection to right thumb/wrist. Additional Plan Thank you for allowing me to participate in this patient's care. Reach out for any questions or concerns. Subjective Date/time seen: 04/27/21 1345 Interval history: Ms. Oliva is a 70yo F seen in follow up POD#2 s/p right total knee arthroplasty. She is tired. Says she slept all day and can't remember anything . Seems right knee pain reasonably controlled at rest. Pain with movement. Slow progress with therapy I'm told. No chest pain or shortness of breath, nausea or vomiting. Review of Systems Review of Systems: All systems reviewed & are unremarkable except as noted in HPI and below Exam Narrative: Exam Narrative: General: Well-developed female sitting on edge of bed working with therapy in no acute distress. HEENT: Wearing glasses. EOMI. Sclerae anicteric. Oral mucosa moist. Neck: Supple. Respiratory: Lungs are clear to auscultation bilaterally. Cardiovascular: Regular rate and rhythm with S1-S2. Gastrointestinal: Abdomen is soft, nontender, and nondistended with positive bowel sounds. Skin: Warm and dry. No rash or lesions on limited exam. Extremities: No cyanosis, clubbing, or significant edema. Radial and pedal pulses intact. Muscu
[2021-04-27 16:41] LABS: Glucose Point of Care 96 mg/dl (65-105)
[2021-04-27] MEDS: LOVASTATIN 10 MG TABLET PO (16:53)
[2021-04-27] MEDS: GABAPENTIN 300 MG CAPSULE 600 MG PO (21:00)
[2021-04-27] MEDS: oxyCODONE/ACETAMINOPHEN (*CRX) 5-325 MG TABLET 1 TABLET PO (22:22)
[2021-04-27 23:13] LABS: Glucose Point of Care 145 mg/dl (65-105)
[2021-04-28 04:38] VITALS: BP 106/49; PULSE 77; RESP 20; TEMP 36.5; O2SAT 94
[2021-04-28 05:49] LABS: Hematocrit 33.9 % (37.0-47.0); Hemoglobin 10.7 g/dL (12.0-15.0); Mean Corpuscular HGB Conc 31.6 g/dl (32-36); Mean Corpuscular Hemoglobin 27.9 pg (26-34); Mean Corpuscular Volume 88.3 fl (80-100); Mean Platelet Volume 10.7 fl (7.4-10.4); Platelet Count Result 157 k/mm3 (150-375); Red Blood Count 3.84 M/mm3 (4.2-5.4); Red Cell Distribution Width 13.9 % (11.5-14.5); White Blood Count 9.8 K/mm3 (4.5-10.0)
[2021-04-28 06:10] LABS: Anion Gap 8 mmol/L (8-16); Blood Urea Nitrogen 29 mg/dL (7-17); Calcium 8.6 mg/dL (8.4-10.2); Carbon Dioxide 27 mmol/L (22-30); Chloride 99 mmol/L (98-107); Estimated CRCL calculation 40 ml/min; Estimated Glomerular Filt Rate 41; Glucose 110 mg/dL (65-105); Magnesium 1.9 mg/dL (1.6-2.3); Potassium 3.3 mmol/L (3.4-5.0); Sodium 134 mmol/L (137-145)
--- NOTE | 2021-04-28 08:07 | PM.PNORT ---
Progress Note: A&P Assessment and Plan (1) S/P total knee arthroplasty: Qualifiers: Laterality: right Qualified Code(s): Z96.651 - Presence of right artificial knee joint Code(s): Z96.659 - Presence of unspecified artificial knee joint Status: Acute Assessment and Plan: POD #3: Right TKA Continue PT/OT. WBAT. Walker. HIGH FALL RISK. Continue pain control. Limit narcotics due to reported confusion yesterday. Ice knee. No pillows directly under knee. Continue DVT prophylaxis. SCDs. Incentive spirometry. Monitor dressing. Change prior to discharge. Dispo: Home with Home Health vs. Acute Rehab given slow progress with PT/OT. Subjective Subjective Date/Time Seen: 04/28/21 08:07 POD #3: Right BKA Improvement in pain today. No new concerns. Still with slow progress with PT/OT. Patient with anxiety regarding stair climbing. Review of Systems Review of Systems: All systems reviewed & are unremarkable except as noted in HPI and below Constitutional: Constitutional: Denies fever(s) and Denies headache(s) ENT: Denies headache(s) Cardiovascular: Cardiovascular: Denies chest pain, Denies diaphoresis, Denies palpitations and Denies dyspnea Respiratory: Respiratory: Denies dyspnea Gastrointestinal: Gastrointestinal: Denies abdominal pain, Denies constipation, Denies nausea and Denies vomiting Genitourinary: Genitourinary: Reports nocturia and Denies dysuria Musculoskeletal: Musculoskeletal: Reports arthralgias (Right Knee ) and Reports joint swelling (Right Knee ) Neurologic: Denies headache(s) Endocrine: Endocrine: Denies palpitations Exam Const: General: comfortable and no acute distress Resp: Effort & Inspection: normal respiratory effort Cardio: Rate: regular rate Rhythm: regular rhythm GI: GI Palp: Yes Soft to palpation, No Tenderness to palpation present (GI) and No Guarding due to palpation present (GI) Skin: Wounds: wounds noted Other: Incision c/d/i. No surrounding redness/warmth. No hematoma. Mild ecchymosis. No wound dehiscence Neuro: Cognition (Neuro): normal cognition Other: NV intact. Moves toes. Sensation intact to light touch. +ankle dorsiflexion/plantarflexion. Negative Erlinda's Sign. 2+ pedal pulses. Extrem: Right upper extremity: normal to inspection, full ROM and normal capillary refill Left upper extremity: normal to inspection, full ROM and normal capillary refill Right lower extremity: normal to inspection, full ROM (ROM limited due to recent surgical intervention ) and knee Details: tenderness (diffuse, mild ) and swelling (diffuse, mild ) Left lower extremity: normal to inspection Psych: Mental Status: mental status grossly normal Objective Data Vital Signs Vital Signs: Vital Signs - 24 hr 04/27/21 09:46 04/27/21 10:16 04/27/21 10:36 Temperature Pulse Rate 62 62 Respiratory Rate 20 Blood Pressure Pulse Oximetry 93 93 04/27/21 14:00 04/27/21 20:34 04/27/21 21:01 Temperature 36.9 C 36.9 C Pulse Rate 79 92 100 Respiratory Rate 18 20 Blood Pressure 139/48 L 138/59 L Pulse Oximetry 96 98 04/27/21 22:15 04/28/21 04:38 Temperature 36.5 C Pulse Rate 93 77 Respiratory Rate 21 H 20 Blood Pressure 106/49 L Pulse Oximetry 97 94 Intake/Output Intake/Output: Intake & Output 04/25/21 04/26/21 04/27/21 04/28/21 23:59 23:59 23:59 23:59 Intake Total 760 846 930 240 Output Total 300 1200 1400 Balance 168 -406 -629 240 Meds/Results Medications: Active Medications Generic Name Dose Route Start Last Admin Trade Name Vasuq PRN Reason Stop Dose Admin Acetaminophen 1,000 mg 04/25/21 15:40 Acetaminophen 500 Mg Tablet PO Q6H PRN Pain Rated 1-3 Aspirin 325 mg 04/25/21 21:00 04/27/21 21:00 Aspirin 325 Mg Enteric Tablet PO 325 mg Q12HR JADIEL Administration Chlorthalidone 50 mg 04/26/21 09:00 04/27/21 09:44 Chlorthalidone 25 Mg Tablet PO 05/26/21 09:01 50 mg QAM JADIEL Admin
[2021-04-28 08:45] LABS: Glucose Point of Care 92 mg/dl (65-105)
--- NOTE | 2021-04-28 08:52 | PCPTNOTE ---
Attempted to see patient for PT, however patient declined due to wanting to eat breakfast and make a phone call. Will check back at a later time.
[2021-04-28] MEDS: POTASSIUM CHLORIDE 20 MEQ TABLET 40 MEQ PO (08:54)
[2021-04-28] MEDS: SODIUM CHLORIDE 0.9% IV 1,000 ML 100 ML IV CONT (08:54)
[2021-04-28] MEDS: FAMOTIDINE 20 MG TABLET 40 MG PO ×2 (08:58→21:40)
[2021-04-28] MEDS: SPIRONOLACTONE 50 MG TABLET PO (08:58)
[2021-04-28] MEDS: ASPIRIN 325 MG ENTERIC TABLET PO ×2 (08:58→21:39)
[2021-04-28] MEDS: GABAPENTIN 300 MG CAPSULE PO (08:59)
[2021-04-28] MEDS: TOPIRAMATE 25 MG TABLET 50 MG PO ×2 (08:59→17:31)
[2021-04-28] MEDS: CHLORTHALIDONE 25 MG TABLET 50 MG PO (08:59)
[2021-04-28] MEDS: NIFEdipine 30 MG TAB.ER.24 90 MG PO (08:59)
[2021-04-28 09:00] VITALS: PULSE 76; RESP 20; O2SAT 94
[2021-04-28] MEDS: MAGNESIUM OXIDE 200 MG TABLET PO ×2 (09:00→21:39)
[2021-04-28] MEDS: metFORMIN HCL 500 MG TABLET PO (09:00)
[2021-04-28] MEDS: METOPROLOL TARTRATE 25 MG TABLET PO ×2 (09:00→21:40)
[2021-04-28] MEDS: CHOLECALCIFEROL 1,000 UNITS TABLET 2000 UNITS PO (09:01)
[2021-04-28] MEDS: DOCUSATE SODIUM 100 MG CAPSULE PO ×2 (09:09→21:39)
[2021-04-28 12:04] LABS: Glucose Point of Care 90 mg/dl (65-105)
[2021-04-28 14:00] VITALS: BP 110/50; PULSE 74; RESP 18; TEMP 36.9; O2SAT 99
[2021-04-28] MEDS: oxyCODONE/ACETAMINOPHEN (*CRX) 5-325 MG TABLET 1 TABLET PO ×2 (14:16→21:50)
--- NOTE | 2021-04-28 15:28 | PM.IMPN ---
Progress Note: A&P Assessment and Plan (1) Right knee DJD: Qualifiers: Osteoarthritis type: primary Qualified Code(s): M17.11 - Unilateral primary osteoarthritis, right knee Code(s): M17.11 - Unilateral primary osteoarthritis, right knee Status: Acute Assessment and Plan: POD#3 s/p right total knee replacement. Wound care, pain control, and DVT prophylaxis per orthopedic service. Limit narcotics as possible due to confusion and lethargy yesterday, feels better today. Dispo is SNF due to slow progress with therapy. (2) Type 2 diabetes mellitus: Qualifiers: Diabetes mellitus terminologist insulin use: without terminologist use Diabetes mellitus complication status: without complication Qualified Code(s): E11.9 - Type 2 diabetes mellitus without complications Code(s): E11.9 - Type 2 diabetes mellitus without complications Status: Acute Assessment and Plan: A1c 5.9%. Resume metformin at discharge. Continue to monitor with accu-cheks and adjust treatment as needed, cover with SSI. (3) Hypertension: Qualifiers: Hypertension type: unspecified Qualified Code(s): I10 - Essential (primary) hypertension Code(s): I10 - Essential (primary) hypertension Status: Acute Assessment and Plan: BPs reviewed, stable. Continue home metoprolol, spironolactone. Monitor BP and adjust treatment as needed. (4) Obstructive sleep apnea on CPAP: Code(s): G47.33 - Obstructive sleep apnea (adult) (pediatric); Z99.89 - Dependence on other enabling machines and devices Status: Acute Assessment and Plan: CPAP. (5) Hyperlipidemia: Qualifiers: Hyperlipidemia type: unspecified Qualified Code(s): E78.5 - Hyperlipidemia, unspecified Code(s): E78.5 - Hyperlipidemia, unspecified Status: Chronic Assessment and Plan: Continue home statin therapy. (6) Gastroesophageal reflux disease: Qualifiers: Esophagitis presence: without esophagitis Qualified Code(s): K21.9 - Gastro-esophageal reflux disease without esophagitis Code(s): K21.9 - Gastro-esophageal reflux disease without esophagitis Status: Acute Assessment and Plan: No acute issues. Continue famotidine. (7) De Quervain's disease (tenosynovitis): Code(s): M65.4 - Radial styloid tenosynovitis [de Quervain] Status: Chronic Assessment and Plan: Status post injection to right thumb/wrist. Additional Plan Added 1 bag IV fluids over the course of 10 hrs for very mild increase in Cr/BUN. Recheck in AM. Thank you for allowing me to participate in this patient's care. Reach out for any questions or concerns. Subjective Date/time seen: 04/28/21 1415 Interval history: Ms. Oliva is a 70yo F seen in follow up POD#3 s/p right total knee arthroplasty. She feels better than yesterday. Worked better with therapy with less pain. Yesterday she slept all day and couldn't remember anything but feels better compared to yesterday, more awake and aware. No chest pain or shortness of breath, nausea or vomiting. Review of Systems Review of Systems: All systems reviewed & are unremarkable except as noted in HPI and below Exam Narrative: Exam Narrative: General: Well-developed female resting comfortably resting supine in bed in no acute distress. HEENT: Wearing glasses. EOMI. Sclerae anicteric. Oral mucosa moist. Neck: Supple. Respiratory: Lungs are clear to auscultation bilaterally. Cardiovascular: Regular rate and rhythm with S1-S2. Gastrointestinal: Abdomen is soft, nontender, and nondistended with positive bowel sounds. Sk
[2021-04-28 17:13] LABS: Glucose Point of Care 98 mg/dl (65-105)
[2021-04-28] MEDS: LOVASTATIN 10 MG TABLET PO (17:32)
[2021-04-28 21:40] VITALS: PULSE 84
[2021-04-28] MEDS: GABAPENTIN 300 MG CAPSULE 600 MG PO (21:40)
[2021-04-28 21:55] LABS: Glucose Point of Care 105 mg/dl (65-105)
[2021-04-28 22:00] VITALS: BP 109/50; PULSE 84; RESP 16; TEMP 37.3; O2SAT 94
[2021-04-28 23:18] VITALS: PULSE 83; RESP 20; O2SAT 94
[2021-04-29 05:42] VITALS: BP 115/58; PULSE 64; RESP 16; TEMP 36.4; O2SAT 95
[2021-04-29 06:40] LABS: Anion Gap 7 mmol/L (8-16); Blood Urea Nitrogen 37 mg/dL (7-17); Calcium 8.7 mg/dL (8.4-10.2); Carbon Dioxide 25 mmol/L (22-30); Chloride 102 mmol/L (98-107); Estimated CRCL calculation 47 ml/min; Estimated Glomerular Filt Rate 49; Glucose 91 mg/dL (65-110); Magnesium 2.2 mg/dL (1.6-2.3); Potassium 3.5 mmol/L (3.4-5.0); Sodium 134 mmol/L (137-145)
[2021-04-29 08:05] LABS: Glucose Point of Care 94 mg/dl (65-105)
[2021-04-29 08:40] VITALS: PULSE 64
[2021-04-29] MEDS: CHOLECALCIFEROL 1,000 UNITS TABLET 2000 UNITS PO (08:40)
[2021-04-29] MEDS: METOPROLOL TARTRATE 25 MG TABLET PO ×2 (08:40→21:38)
[2021-04-29] MEDS: SPIRONOLACTONE 50 MG TABLET PO (08:40)
[2021-04-29] MEDS: GABAPENTIN 300 MG CAPSULE PO (08:40)
[2021-04-29] MEDS: MAGNESIUM OXIDE 200 MG TABLET PO ×2 (08:40→21:39)
[2021-04-29] MEDS: metFORMIN HCL 500 MG TABLET PO (08:40)
[2021-04-29] MEDS: NIFEdipine 30 MG TAB.ER.24 90 MG PO (08:40)
[2021-04-29] MEDS: TOPIRAMATE 25 MG TABLET 50 MG PO ×2 (08:41→17:30)
[2021-04-29] MEDS: ASPIRIN 325 MG ENTERIC TABLET PO ×2 (08:41→21:38)
[2021-04-29] MEDS: FAMOTIDINE 20 MG TABLET 40 MG PO ×2 (08:41→21:38)
[2021-04-29] MEDS: CHLORTHALIDONE 25 MG TABLET 50 MG PO (08:41)
[2021-04-29] MEDS: DOCUSATE SODIUM 100 MG CAPSULE PO ×2 (08:47→21:39)
--- NOTE | 2021-04-29 09:49 | PM.PNORT ---
Progress Note: A&P Assessment and Plan (1) S/P total knee arthroplasty: Qualifiers: Laterality: right Qualified Code(s): Z96.651 - Presence of right artificial knee joint Code(s): Z96.659 - Presence of unspecified artificial knee joint Status: Acute Assessment and Plan: POD #4: Right TKA Continue PT/OT. WBAT. Walker. FALL RISK. Continue pain control. Limit narcotics due to reported confusion yesterday. Awaiting BM, continue stool softener. Ice knee. No pillows directly under knee. Continue DVT prophylaxis. SCDs. Incentive spirometry. Dressing changed this AM, incision benign Dispo: Plan for Acute Rehab. Subjective Subjective Date/Time Seen: 04/29/21 09:49 Post Op day: 4 Principal diagnosis: RT TKA Interval history: No new complaints. Slow to progress with therapy. Apprehensive about stairs. Exam Const: General: comfortable and no acute distress Resp: Effort & Inspection: normal respiratory effort Cardio: Rate: regular rate Rhythm: regular rhythm GI: GI Palp: Yes Soft to palpation, No Tenderness to palpation present (GI) and No Guarding due to palpation present (GI) Skin: Wounds: wounds noted Other: Incision c/d/i. No surrounding redness/warmth. No hematoma. Mild ecchymosis. No wound dehiscence. Dressing changed. Neuro: Cognition (Neuro): normal cognition Other: NV intact. Moves toes. Sensation intact to light touch. +ankle dorsiflexion/plantarflexion. Negative Erlinda's Sign. 2+ pedal pulses. Extrem: Right upper extremity: normal to inspection, full ROM and normal capillary refill Left upper extremity: normal to inspection, full ROM and normal capillary refill Right lower extremity: normal to inspection, full ROM (ROM limited due to recent surgical intervention ) and knee Details: tenderness (diffuse, mild ) and swelling (diffuse, mild ) Left lower extremity: normal to inspection Psych: Mental Status: mental status grossly normal Objective Data Vital Signs Vital Signs: Vital Signs - 24 hr 04/28/21 14:00 04/28/21 21:40 04/28/21 22:00 Temperature 98.5 F 99.2 F Pulse Rate 74 84 84 Respiratory Rate 18 16 Blood Pressure 110/50 L 109/50 L Pulse Oximetry 99 94 04/29/21 05:42 04/29/21 08:40 Temperature 97.6 F Pulse Rate 64 64 Respiratory Rate 16 Blood Pressure 115/58 L Pulse Oximetry 95 Intake/Output Intake/Output: Intake & Output 04/26/21 04/27/21 04/28/21 04/29/21 23:59 23:59 23:59 23:59 Intake Total 888 599 7339 540 Output Total 1200 1400 1200 600 Balance -354 -470 1412 -60 Meds/Results Medications: Active Medications Generic Name Dose Route Start Last Admin Trade Name Freq PRN Reason Stop Dose Admin Acetaminophen 1,000 mg 04/25/21 15:40 Acetaminophen 500 Mg Tablet PO Q6H PRN Pain Rated 1-3 Aspirin 325 mg 04/25/21 21:00 04/29/21 08:41 Aspirin 325 Mg Enteric Tablet PO 325 mg Q12HR JADIEL Administration Chlorthalidone 50 mg 04/26/21 09:00 04/29/21 08:41 Chlorthalidone 25 Mg Tablet PO 05/26/21 09:01 50 mg QAM JADIEL Administration Dextrose 12.5 gm 04/25/21 16:37 Dextrose 50% 25 Gm/50 Ml Syringe IV PUSH PRN PRN Hypoglycemia Protocol Diazepam 5 mg 04/25/21 15:40 Diazepam (*Crx) 5 Mg Tablet PO Q8H PRN Spasms Diphenhydramine HCl 25 mg 04/25/21 15:40 Diphenhydramine Hcl Inj 50 Mg/Ml Vial IV PUSH Q6H PRN Itching Docusate Sodium 100 mg 04/25/21 21:00 04/29/21 08:47 Docusate Sodium 100 Mg Capsule PO 100 mg Q12HR JADIEL Administration Famotidine 40 mg 04/25/21 21:00 04/29/21 08:41 Famotidine 20 Mg Tablet PO 40 mg Q12HR JADIEL Administration Gabapentin 300 mg 04/26/21 09:00 04/29/21 08:40 Gabapentin 300 Mg Capsule PO 300 mg QAM JADIEL Administration Gabapentin 600 mg 04/25/21 21:00 04/28/21 21:40 Gabapentin 300 Mg Capsule PO 600 mg HS JADIEL Administration Glucagon 1 mg 04/25/21 16:37 Glucagon For Inj 1 Mg Via
--- NOTE | 2021-04-29 10:05 | PM.IMPN ---
Progress Note: A&P Assessment and Plan (1) Right knee DJD: Qualifiers: Osteoarthritis type: primary Qualified Code(s): M17.11 - Unilateral primary osteoarthritis, right knee Code(s): M17.11 - Unilateral primary osteoarthritis, right knee Status: Acute Assessment and Plan: POD#4 s/p right total knee replacement. Wound care, pain control, and DVT prophylaxis per orthopedic service. Limit narcotics as possible due to confusion and lethargy 04/27, feels better today. Dispo is SNF due to slow progress with therapy. Awaiting insurance authorization. (2) Type 2 diabetes mellitus: Qualifiers: Diabetes mellitus complication status: without complication Diabetes mellitus longterm insulin use: without termite exterminator helper use Qualified Code(s): E11.9 - Type 2 diabetes mellitus without complications Code(s): E11.9 - Type 2 diabetes mellitus without complications Status: Acute Assessment and Plan: A1c 5.9%. Continue metformin. Continue to monitor with accu-cheks and adjust treatment as needed, cover with SSI. (3) Hypertension: Qualifiers: Hypertension type: unspecified Qualified Code(s): I10 - Essential (primary) hypertension Code(s): I10 - Essential (primary) hypertension Status: Acute Assessment and Plan: BPs reviewed, stable. On lower end this morning. Continue home metoprolol, nifedipine, spironolactone. Monitor BP and adjust treatment as needed. (4) Obstructive sleep apnea on CPAP: Code(s): G47.33 - Obstructive sleep apnea (adult) (pediatric); Z99.89 - Dependence on other enabling machines and devices Status: Acute Assessment and Plan: CPAP. (5) Hyperlipidemia: Qualifiers: Hyperlipidemia type: unspecified Qualified Code(s): E78.5 - Hyperlipidemia, unspecified Code(s): E78.5 - Hyperlipidemia, unspecified Status: Chronic Assessment and Plan: Continue home statin therapy. (6) Gastroesophageal reflux disease: Qualifiers: Esophagitis presence: without esophagitis Qualified Code(s): K21.9 - Gastro-esophageal reflux disease without esophagitis Code(s): K21.9 - Gastro-esophageal reflux disease without esophagitis Status: Acute Assessment and Plan: No acute issues. Continue famotidine. (7) De Quervain's disease (tenosynovitis): Code(s): M65.4 - Radial styloid tenosynovitis [de Quervain] Status: Chronic Assessment and Plan: Status post injection to right thumb/wrist. Additional Plan Thank you for allowing me to participate in this patient's care. Will follow with you while she is here. Reach out for any medical questions or concerns. Subjective Date/time seen: 04/29/21 10:05 Interval history: Ms. Oliva is a 70yo F seen in follow up POD#4 s/p right total knee arthroplasty. She is feeling well. Hasn't had a BM yet but is passing gas and tolerating meals with positive bowel sounds. Otherwise offers no complaints at this time. Denies chest pain, shortness of breath, nausea or vomiting. Review of Systems Review of Systems: All systems reviewed & are unremarkable except as noted in HPI and below Exam Narrative: Exam Narrative: General: Well-developed female resting comfortably resting supine in bed in no acute distress. HEENT: Wearing glasses. EOMI. Sclerae anicteric. Oral mucosa moist. Neck: Supple. Respiratory: Lungs are clear to auscultation bilaterally. Cardiovascular: Regular rate and rhythm with S1-S2. Gastrointestinal: Abdomen is soft, nontender, and nondistended with positive bowel sounds. Skin: Warm and dry. No rash or lesio
[2021-04-29] MEDS: polyethylene glycoL 3350 17 GM POWD.PACK PO (11:08)
[2021-04-29 12:29] LABS: Glucose Point of Care 97 mg/dl (65-105)
[2021-04-29 14:00] VITALS: BP 112/51; PULSE 70; RESP 20; TEMP 36.4; O2SAT 100
[2021-04-29] MEDS: LOVASTATIN 10 MG TABLET PO (17:30)
[2021-04-29 17:39] LABS: Glucose Point of Care 78 mg/dl (65-105)
[2021-04-29 21:38] VITALS: PULSE 75
[2021-04-29] MEDS: GABAPENTIN 300 MG CAPSULE 600 MG PO (21:39)
[2021-04-29 23:03] LABS: Glucose Point of Care 107 mg/dl (65-105)
[2021-04-29 23:10] VITALS: O2SAT 98
[2021-04-29 23:29] VITALS: BP 126/53; PULSE 75; RESP 16; TEMP 37.1; O2SAT 98
[2021-04-30] MEDS: oxyCODONE/ACETAMINOPHEN (*CRX) 5-325 MG TABLET 1 TABLET PO ×2 (03:34→21:09)
[2021-04-30 06:00] VITALS: BP 113/53; PULSE 58; RESP 16; TEMP 36.1; O2SAT 97
[2021-04-30 08:22] LABS: Glucose Point of Care 87 mg/dl (65-105)
[2021-04-30] MEDS: polyethylene glycoL 3350 17 GM POWD.PACK PO (09:36)
[2021-04-30] MEDS: CHLORTHALIDONE 25 MG TABLET 50 MG PO (09:36)
[2021-04-30] MEDS: SPIRONOLACTONE 50 MG TABLET PO (09:37)
[2021-04-30] MEDS: GABAPENTIN 300 MG CAPSULE PO (09:37)
[2021-04-30] MEDS: metFORMIN HCL 500 MG TABLET PO (09:37)
[2021-04-30] MEDS: NIFEdipine 30 MG TAB.ER.24 90 MG PO (09:37)
[2021-04-30] MEDS: TOPIRAMATE 25 MG TABLET 50 MG PO ×2 (09:37→17:21)
[2021-04-30] MEDS: ASPIRIN 325 MG ENTERIC TABLET PO ×2 (09:37→21:06)
[2021-04-30] MEDS: CHOLECALCIFEROL 1,000 UNITS TABLET 2000 UNITS PO (09:37)
[2021-04-30] MEDS: FAMOTIDINE 20 MG TABLET 40 MG PO ×2 (09:37→21:05)
[2021-04-30 09:38] VITALS: PULSE 58
[2021-04-30] MEDS: METOPROLOL TARTRATE 25 MG TABLET PO ×2 (09:38→21:06)
[2021-04-30] MEDS: DOCUSATE SODIUM 100 MG CAPSULE PO ×2 (09:39→21:06)
--- NOTE | 2021-04-30 09:39 | PM.PNORT ---
Progress Note: A&P Assessment and Plan (1) S/P total knee arthroplasty: Qualifiers: Laterality: right Qualified Code(s): Z96.651 - Presence of right artificial knee joint Code(s): Z96.659 - Presence of unspecified artificial knee joint Status: Acute Assessment and Plan: POD #5: Right TKA Continue PT/OT. WBAT. Walker. FALL RISK. Continue pain control. Limit narcotics due to reported confusion. Bowel movement this morning. Ice knee. No pillows directly under knee. Continue DVT prophylaxis. SCDs. Incentive spirometry. Dressing changed this AM, incision benign Dispo: Plan for Acute Rehab. Subjective Subjective Date/Time Seen: 04/30/21 09:39 Post Op day: 5 ( Right total knee arthroplasty) Principal diagnosis: right knee arthritis Interval history: patient reports no new complaints. Pain and swelling slightly better. Able to move the leg better. Patient reports bowel movement this morning. Exam Const: General: comfortable and no acute distress Resp: Effort & Inspection: normal respiratory effort Cardio: Rate: regular rate Rhythm: regular rhythm GI: GI Palp: Yes Soft to palpation, No Tenderness to palpation present (GI) and No Guarding due to palpation present (GI) Skin: Wounds: wounds noted Other: Incision c/d/i. No surrounding redness/warmth. No hematoma. Mild ecchymosis. No wound dehiscence. Dressing in place. Neuro: Cognition (Neuro): normal cognition Other: NV intact. Moves toes. Sensation intact to light touch. +ankle dorsiflexion/plantarflexion. Negative Erlinda's Sign. 2+ pedal pulses. Extrem: Right upper extremity: normal to inspection, full ROM and normal capillary refill Left upper extremity: normal to inspection, full ROM and normal capillary refill Right lower extremity: normal to inspection, full ROM (ROM limited due to recent surgical intervention ) and knee Details: tenderness (diffuse, mild ) and swelling (diffuse, mild ) Left lower extremity: normal to inspection Psych: Mental Status: mental status grossly normal Objective Data Vital Signs Vital Signs: Vital Signs - 24 hr 04/29/21 14:00 04/29/21 21:38 04/29/21 23:10 Temperature 97.5 F L Pulse Rate 70 75 Respiratory Rate 20 Blood Pressure 112/51 L Pulse Oximetry 100 98 04/29/21 23:29 04/30/21 06:00 Temperature 98.8 F 97.0 F L Pulse Rate 75 58 L Respiratory Rate 16 16 Blood Pressure 126/53 L 113/53 L Pulse Oximetry 98 97 Intake/Output Intake/Output: Intake & Output 04/27/21 04/28/21 04/29/21 04/30/21 23:59 23:59 23:59 23:59 Intake Total 930 2612 1220 200 Output Total 1400 1200 900 500 Balance -470 1412 320 -300 Meds/Results Medications: Active Medications Generic Name Dose Route Start Last Admin Trade Name Freq PRN Reason Stop Dose Admin Acetaminophen 1,000 mg 04/25/21 15:40 Acetaminophen 500 Mg Tablet PO Q6H PRN Pain Rated 1-3 Aspirin 325 mg 04/25/21 21:00 04/29/21 21:38 Aspirin 325 Mg Enteric Tablet PO 325 mg Q12HR JADIEL Administration Bisacodyl 10 mg 04/29/21 10:04 Bisacodyl 10 Mg Suppository RECTAL QAM PRN Constipation Chlorthalidone 50 mg 04/26/21 09:00 04/29/21 08:41 Chlorthalidone 25 Mg Tablet PO 05/26/21 09:01 50 mg QAM JADIEL Administration Dextrose 12.5 gm 04/25/21 16:37 Dextrose 50% 25 Gm/50 Ml Syringe IV PUSH PRN PRN Hypoglycemia Protocol Diazepam 5 mg 04/25/21 15:40 Diazepam (*Crx) 5 Mg Tablet PO Q8H PRN Spasms Diphenhydramine HCl 25 mg 04/25/21 15:40 Diphenhydramine Hcl Inj 50 Mg/Ml Vial IV PUSH Q6H PRN Itching Docusate Sodium 100 mg 04/25/21 21:00 04/29/21 21:39 Docusate Sodium 100 Mg Capsule PO 100 mg Q12HR JADIEL Administration Famotidine 40 mg 04/25/21 21:00 04/29/21 21:38 Famotidine 20 Mg Tablet PO 40 mg Q12HR JADIEL Administration Gabapentin 300 mg 04/26/21 09:00 04/29/21 08:40 Gabapentin 300 Mg Capsule PO 30
[2021-04-30] MEDS: MAGNESIUM OXIDE 200 MG TABLET PO ×2 (10:35→21:06)
[2021-04-30 12:21] LABS: Glucose Point of Care 83 mg/dl (65-105)
[2021-04-30 14:00] VITALS: BP 121/49; PULSE 66; RESP 20; TEMP 36.4; O2SAT 97
--- NOTE | 2021-04-30 14:43 | PM.IMPN ---
Progress Note: A&P Assessment and Plan (1) Right knee DJD: Qualifiers: Osteoarthritis type: primary Qualified Code(s): M17.11 - Unilateral primary osteoarthritis, right knee Code(s): M17.11 - Unilateral primary osteoarthritis, right knee Status: Acute Assessment and Plan: POD#5 s/p right total knee replacement. Wound care, pain control, and DVT prophylaxis per orthopedic service. Limit narcotics as possible due to confusion and lethargy 04/27, feels better today. Dispo is SNF due to slow progress with therapy. Patient encouraged to continue working hard with therapy. Awaiting insurance authorization. (2) Type 2 diabetes mellitus: Qualifiers: Diabetes mellitus shelter insulin use: without medical terminologist use Diabetes mellitus complication status: without complication Qualified Code(s): E11.9 - Type 2 diabetes mellitus without complications Code(s): E11.9 - Type 2 diabetes mellitus without complications Status: Acute Assessment and Plan: A1c 5.9%. Continue metformin. Continue to monitor with accu-cheks and adjust treatment as needed, cover with SSI. (3) Hypertension: Qualifiers: Hypertension type: unspecified Qualified Code(s): I10 - Essential (primary) hypertension Code(s): I10 - Essential (primary) hypertension Status: Acute Assessment and Plan: BPs reviewed, stable. On lower end - asymptomatic. Continue her home regimen with metoprolol, nifedipine, spironolactone for now. Monitor BP and adjust treatment as needed. (4) Obstructive sleep apnea on CPAP: Code(s): G47.33 - Obstructive sleep apnea (adult) (pediatric); Z99.89 - Dependence on other enabling machines and devices Status: Acute Assessment and Plan: CPAP. (5) Hyperlipidemia: Qualifiers: Hyperlipidemia type: unspecified Qualified Code(s): E78.5 - Hyperlipidemia, unspecified Code(s): E78.5 - Hyperlipidemia, unspecified Status: Chronic Assessment and Plan: Continue home statin therapy. (6) Gastroesophageal reflux disease: Qualifiers: Esophagitis presence: without esophagitis Qualified Code(s): K21.9 - Gastro-esophageal reflux disease without esophagitis Code(s): K21.9 - Gastro-esophageal reflux disease without esophagitis Status: Acute Assessment and Plan: No acute issues. Continue famotidine. (7) De Quervain's disease (tenosynovitis): Code(s): M65.4 - Radial styloid tenosynovitis [de Quervain] Status: Chronic Assessment and Plan: Status post injection to right thumb/wrist. Additional Plan Thank you for allowing me to participate in this patient's care. Will follow with you while she is here. Reach out for any medical questions or concerns. Subjective Date/time seen: 04/30/21 1100 Interval history: Ms. Oliva is a 70yo F seen in follow up POD#5 s/p right total knee arthroplasty. She is feeling well. Was constipated but had a BM this morning. She denies chest pain, shortness of breath, nausea or vomiting. Review of Systems Review of Systems: All systems reviewed & are unremarkable except as noted in HPI and below Exam Narrative: Exam Narrative: General: Well-developed female resting comfortably resting supine in bed in no acute distress. HEENT: Wearing glasses. EOMI. Sclerae anicteric. Oral mucosa moist. Neck: Supple. Respiratory: Lungs are clear to auscultation bilaterally. Cardiovascular: Regular rate and rhythm with S1-S2. Gastrointestinal: Abdomen is soft, nontender, and nondistended with positive bowel sounds. Skin: Warm and dry. No rash or lesions o
[2021-04-30] MEDS: LOVASTATIN 10 MG TABLET PO (17:22)
[2021-04-30 20:44] LABS: Glucose Point of Care 100 mg/dl (65-105)
[2021-04-30] MEDS: GABAPENTIN 300 MG CAPSULE 600 MG PO (21:05)
[2021-04-30 21:06] VITALS: PULSE 64
[2021-04-30 22:00] VITALS: BP 125/62; PULSE 70; RESP 16; TEMP 36.8; O2SAT 98
[2021-04-30 23:15] VITALS: PULSE 81; RESP 17; O2SAT 95
[2021-05-01 01:41] VITALS: PULSE 75; RESP 15; O2SAT 94
[2021-05-01 03:49] LABS: Glucose Point of Care 82 mg/dl (65-105)
[2021-05-01 05:40] VITALS: BP 110/60; PULSE 58; RESP 16; TEMP 36.4; O2SAT 100
--- NOTE | 2021-05-01 09:15 | PM.PNORT ---
Progress Note: A&P Assessment and Plan (1) S/P total knee arthroplasty: Qualifiers: Laterality: right Qualified Code(s): Z96.651 - Presence of right artificial knee joint Code(s): Z96.659 - Presence of unspecified artificial knee joint Status: Acute Assessment and Plan: POD #6: Right TKA Continue PT/OT. WBAT. Walker. FALL RISK. Continue pain control. Bowel regimen. Ice knee. No pillows directly under knee. Continue DVT prophylaxis. SCDs. Incentive spirometry. Dressing c/d/i. Change in 5 days. Dispo: Acute Rehab vs. Home with Home Health. Subjective Subjective Date/Time Seen: 05/01/21 0835 POD #6: RIGHT TKA No new complaints. Pain well controlled. Some concern about discharge home as opposed to rehab. Improvement with PT/OT, standby assist. Successfully performed stairs which patient reports were easy . Review of Systems Review of Systems: All systems reviewed & are unremarkable except as noted in HPI and below Constitutional: Constitutional: Denies fever(s) and Denies headache(s) ENT: Denies headache(s) Cardiovascular: Cardiovascular: Denies chest pain, Denies diaphoresis, Denies palpitations and Denies dyspnea Respiratory: Respiratory: Denies dyspnea Gastrointestinal: Gastrointestinal: Denies abdominal pain, Denies constipation, Denies nausea and Denies vomiting Genitourinary: Genitourinary: Reports nocturia and Denies dysuria Musculoskeletal: Musculoskeletal: Reports arthralgias (Right Knee ) and Reports joint swelling (Right Knee ) Neurologic: Denies headache(s) Endocrine: Endocrine: Denies palpitations Exam Const: General: comfortable and no acute distress Resp: Effort & Inspection: normal respiratory effort Cardio: Rate: regular rate Rhythm: regular rhythm GI: GI Palp: Yes Soft to palpation, No Tenderness to palpation present (GI) and No Guarding due to palpation present (GI) Skin: Wounds: wounds noted Other: Incision c/d/i. No surrounding redness/warmth. No hematoma. Mild ecchymosis. No wound dehiscence. Dressing in place. Neuro: Cognition (Neuro): normal cognition Other: NV intact. Moves toes. Sensation intact to light touch. +ankle dorsiflexion/plantarflexion. Negative Erlinda's Sign. 2+ pedal pulses. Extrem: Right upper extremity: normal to inspection, full ROM and normal capillary refill Left upper extremity: normal to inspection, full ROM and normal capillary refill Right lower extremity: normal to inspection, full ROM (ROM limited due to recent surgical intervention ) and knee Details: tenderness (diffuse, mild ) and swelling (diffuse, mild ) Left lower extremity: normal to inspection Psych: Mental Status: mental status grossly normal Objective Data Vital Signs Vital Signs: Vital Signs - 24 hr 04/30/21 09:38 04/30/21 14:00 04/30/21 21:06 Temperature 36.4 C Pulse Rate 58 L 66 64 Respiratory Rate 20 Blood Pressure 121/49 L Pulse Oximetry 97 04/30/21 22:00 04/30/21 23:15 05/01/21 01:41 Temperature 36.8 C Pulse Rate 70 81 75 Respiratory Rate 16 17 15 Blood Pressure 125/62 Pulse Oximetry 98 95 94 05/01/21 05:40 Temperature 36.4 C Pulse Rate 58 L Respiratory Rate 16 Blood Pressure 110/60 Pulse Oximetry 100 Intake/Output Intake/Output: Intake & Output 04/28/21 04/29/21 04/30/21 05/01/21 23:59 23:59 23:59 23:59 Intake Total 2612 1220 930 540 Output Total 3211 870 4460 500 Balance 1412 320 -220 40 Meds/Results Medications: Active Medications Generic Name Dose Route Start Last Admin Trade Name Freq PRN Reason Stop Dose Admin Acetaminophen 1,000 mg 04/25/21 15:40 Acetaminophen 500 Mg Tablet PO Q6H PRN Pain Rated 1-3 Aspirin 325 mg 04/25/21 21:00 04/30/21 21:06 Aspirin 325 Mg Enteric Tablet PO 325 mg Q12HR JADIEL Administration Bisacodyl 10 mg 04/29/21 10:04 Bisacodyl 10 Mg Suppository RECTAL QAM PRN Constipation Chlorthalidone 50 mg 04/26/21 09:00
[2021-05-01] MEDS: oxyCODONE/ACETAMINOPHEN (*CRX) 5-325 MG TABLET 1 TABLET PO (09:49)
[2021-05-01] MEDS: DOCUSATE SODIUM 100 MG CAPSULE PO (09:49)
[2021-05-01] MEDS: TOPIRAMATE 25 MG TABLET 50 MG PO (09:50)
[2021-05-01] MEDS: CHLORTHALIDONE 25 MG TABLET 50 MG PO (09:50)
[2021-05-01] MEDS: metFORMIN HCL 500 MG TABLET PO (09:50)
[2021-05-01] MEDS: ASPIRIN 325 MG ENTERIC TABLET PO (09:50)
[2021-05-01] MEDS: NIFEdipine 30 MG TAB.ER.24 90 MG PO (09:51)
[2021-05-01] MEDS: FAMOTIDINE 20 MG TABLET 40 MG PO (09:51)
[2021-05-01] MEDS: GABAPENTIN 300 MG CAPSULE PO (09:51)
[2021-05-01] MEDS: SPIRONOLACTONE 50 MG TABLET PO (09:51)
[2021-05-01 09:52] VITALS: PULSE 70
[2021-05-01] MEDS: METOPROLOL TARTRATE 25 MG TABLET PO (09:52)
[2021-05-01] MEDS: CHOLECALCIFEROL 1,000 UNITS TABLET 2000 UNITS PO (09:52)
[2021-05-01] MEDS: MAGNESIUM OXIDE 200 MG TABLET PO (09:53)
[2021-05-01] MEDS: polyethylene glycoL 3350 17 GM POWD.PACK PO (09:53)
--- NOTE | 2021-05-01 13:00 | PM.DS ---
DS: Admitting Diagnosis Admitting Diagnosis Admitting Diagnosis: Right knee DJD DS: Discharge Diagnosis Discharge Diagnosis (1) S/P total knee arthroplasty: Qualifiers: Laterality: right Qualified Code(s): Z96.651 - Presence of right artificial knee joint Code(s): Z96.659 - Presence of unspecified artificial knee joint Status: Acute Assessment and Plan: POD #6: Right TKA Continue PT/OT. WBAT. Walker. FALL RISK. Continue pain control. Bowel regimen. Ice knee. No pillows directly under knee. Continue DVT prophylaxis. SCDs. Incentive spirometry. Dressing c/d/i. Change in 5 days. Dispo: Acute Rehab vs. Home with Home Health. DS: Summary Hospital Course Reason for hospitalization: Right knee DJD Hospital Course: 70-year-old female admitted status post right total knee arthroplasty for postoperative medical management, pain control and mobilization with physical and occupational therapy. Patient had a slow initial progression with PT and OT. She was unable to perform stairs and therefore was not deemed safe to be discharged home. We initially began insurance authorization for the patient to attend an acute inpatient rehabilitation center. Patient remained hospitalized during this time frame. She continued to work with PT and OT. Her progress improved on postop day 4 and postop day 5. She was able to do stair climbing. She was deemed safe to be discharged home with home health at this time. Patient is satisfied with this plan and feels she will be able to progress at home as well. She has been cleared from medicine standpoint for discharge home. She will be discharged home with home health at this time and will follow up in the outpatient orthopedic clinic in approximately 2 and half weeks for re-evaluation and transition to outpatient rehab. Status at Discharge Functional status at discharge: uses cane/walker Overall status at discharge: patient is back to baseline Time Spent with Patient Time attestation: Total time spent providing and/or coordinating discharge services: DS: Data Data Completed and Pending Labs on day of discharge: Labs from last 24 hours 04/30/21 04/30/21 20:01 16:44 POC Capillary Glucose 100 82 Discharge Plan Discharge Attending physician on discharge: Monster Toure Consulting providers: Wanda Arreola ; Moncho Scruggs Discharging Clinician: Homa Morgan Anticipated Discharge Date/Time: 05/01/21 10:50 Patient Disposition: Home Health Service Activity: may shower, no driving and follow weight bearing status Diet: as tolerated Wound Care Instructions: follow printed instructions Discharge Instructions: Per care coordination, patient to discharge with [facility] for PT/OT and prison services. ([phone]) Post Op Total Knee Replacement Instructions Dr. Monster Toure [phone] ? Your dressing will be changed prior to your discharge. You will be sent home with one additional dressing to be changed in 5 days by the home health RN. Your mariah will be removed on the 14th day after surgery and steri-strips will be placed. ? You may shower with your dressing but do not submerge in a bath tub. ? Do not drive or operate machinery until you are released by Dr. Toure. ? Do not walk without a walker for any reason until you are released by Dr. Toure. ? Continue to use your ice machine. Please use a towel or pillow case to protect your skin before applying your ice machine. ? Do NOT place a pillow under your knee. You may use a pillow from the calf down if needed. ? You may begin use of your CPM machine at home if you have been given one pre-operatively. DO NOT USE WHILE YOU ARE SLEEPING. Your CPM Machine will be delivered to your home as soon as possible. They have approved it for you. Thanks. ? Your follow up appointment is indicated in your discharge instructions. ? Your medications have been sent
== END 2021-05-01 12:40 | disposition home health service (06) | DRG 470 ==
LOC: ANHSURGERY 13:58 → ANH2MED 13:58
PROVIDERS: Physician Assistant; Admitting Provider Orthopaedic Surgery; PCP Internal Medicine; Visit Provider Orthopaedic Surgery
PROC: 0SRC0J9 Replacement of Right Knee Joint with Synthetic Substitute, Cemented, Open Approach (ICD-10-PCS; CPT 27447; principal; 2021-04-25 11:30)
DX: M17.11 Unilateral primary osteoarthritis, right knee (principal); M65.4 Radial styloid tenosynovitis [de Quervain]; E11.9 Type 2 diabetes mellitus without complications; I10 Essential (primary) hypertension; E78.5 Hyperlipidemia, unspecified; K21.9 Gastro-esophageal reflux disease without esophagitis; G47.33 Obstructive sleep apnea (adult) (pediatric); E66.9 Obesity, unspecified; Z68.39 Body mass index [BMI] 39.0-39.9, adult; Z96.652 Presence of left artificial knee joint
CPT/HCPCS: 36415; 73560; 80048; 80076; 82948; 83036; 83735; 85025; 85027; 97110; 97116; 97161; 97165; 97530; 97535; A9270; C1713; C1776; G0378; J0171; J0690; J1040; J1100; J2250; J2270; J2405; J2704; J2795; J3010; J3475; J7030; J7120

== ENCOUNTER 2023-02-06 09:12 | Outpatient (CLI) | payer MEDICARE, MEDICAID, SELFPAY | END 2023-02-06 09:13 | disposition home or self-care (01) | LOC: ANHBWCAUD 09:13 | PROVIDERS: PCP Internal Medicine; Visit Provider Internal Medicine | DX: H90.3 Sensorineural hearing loss, bilateral (principal) | CPT/HCPCS: 92557; 92567 ==

== ENCOUNTER 2023-04-13 12:05 | Emergency (ER) | payer MEDICARE, MEDICAID, SELFPAY ==
--- NOTE | 2023-04-13 12:09 | ED.SKABFB ---
HPI - Skin/Abscess/Foreign Bdy General Chief complaint: Skin/Abscess/Foreign Body Stated complaint: Rash on left foot / ankle Time Seen by Provider: 04/13/23 12:24 Source: patient, RN notes reviewed and old records reviewed Mode of arrival: ambulatory Limitations: no limitations History of Present Illness HPI narrative: 72-year-old female presents to the [facility] with complaints of a rash to the medial left ankle for 2 days. Has a history of diabetes however does not check her sugars on a regular basis. Reports discomfort and swelling that again started 2 days ago. Just proximal of those wounds there are 2 red warm areas, patient states has been there for several days. States that she keeps picking at it. More red areas developed this morning. Related Data Home Medications Medication Instructions Recorded Confirmed aspirin 81 mg chewable tablet 81 mg PO DAILY 04/12/20 04/13/23 (Hoang Chewable Low Dose Aspirin) chlorthalidone 50 mg tablet 50 mg PO QAM 04/12/20 04/19/22 lovastatin 10 mg tablet 10 mg PO QPM 04/12/20 04/13/23 metoprolol tartrate 25 mg tablet 25 mg PO BID 04/12/20 04/13/23 nifedipine 90 mg tablet,extended 90 mg PO QAM 04/12/20 04/13/23 release spironolactone 50 mg tablet 50 mg PO QAM 04/12/20 04/13/23 cholecalciferol (vitamin D3) 50 50 mcg PO DAILY 04/13/21 04/13/23 mcg (2,000 unit) capsule gabapentin 300 mg capsule 600 mg PO HS 04/13/21 04/13/23 oxybutynin chloride 10 mg 10 mg PO QAM 04/13/21 04/13/23 tablet,extended release 24 hr famotidine 20 mg tablet 20 mg PO BID 05/12/21 04/13/23 metformin 500 mg tablet,extended 500 mg PO DAILY 05/12/21 04/13/23 release 24 hr topiramate 50 mg PO BID 05/12/21 04/13/23 Allergies Allergy/AdvReac Type Severity Reaction Status Date / Time lisinopril Allergy Severe RASH Verified 04/13/23 12:24 Sulfa (Sulfonamide Allergy Severe RASH Verified 04/13/23 12:24 Antibiotics) acetaminophen Allergy Unknown SWELLING & Verified 04/13/23 12:24 ITCHING FEET hydrochlorothiazide Allergy Unknown unknown Verified 04/13/23 12:24 Review of Systems Review of Systems: All systems reviewed & are unremarkable except as noted in HPI and below Constitutional: Constitutional: Reports no additional constitutional complaints Eyes: Eyes: Reports no additional eye complaints ENT: Reports system reviewed and no additional complaints, except as documented Cardiovascular: Cardiovascular: Reports no additional cardiovascular complaints, Denies chest pain and Denies dyspnea Respiratory: Respiratory: Reports no additional respiratory complaints, Denies chest congestion, Denies cough and Denies dyspnea Gastrointestinal: Gastrointestinal: Reports no additional gastrointestinal complaints, Denies abdominal pain, Denies nausea and Denies vomiting Musculoskeletal: Musculoskeletal: Reports no additional musculoskeletal complaints Integumentary/Breasts: Skin/Breast: Reports as per HPI, Reports swelling, Reports erythema, Reports skin pain and Reports sores Neurologic: Reports system reviewed and no additional complaints, except as documented Psychiatric: Psychiatric: Reports no additional psychiatric complaints Allergic/Immunologic: Allergic/Immunologic: Reports no additional allergic/immunologic complaints PMFSH Past Medical History Medical History Gastroesophageal reflux disease Gout Hyperlipidemia Hypertension Obstructive sleep apnea on CPAP Type 2 diabetes mellitus Hemoglobin A1c was 5.9% on 04/25/2021. Urinary, incontinence, stress female Surgical History Surgical History History of arthroscopy of both knees History of herniorrhaphy History of left knee replacement (01/2019) History of right knee joint replacement (04/25/21) S/P total knee arthroplasty Family History Family History Mother Cerebr
[2023-04-13 12:20] VITALS: BP 130/65; PULSE 57; RESP 20; TEMP 36.8; O2SAT 97
[2023-04-13 12:45] LABS: Glucose Point of Care 87 mg/dl (65-105)
== END 2023-04-13 12:50 | disposition home or self-care (01) ==
PROVIDERS: Emergency Provider Nurse Practitioner; PCP Internal Medicine
DX: S81.801A Unspecified open wound, right lower leg, initial encounter (principal); L03.115 Cellulitis of right lower limb; X58.XXXA Exposure to other specified factors, initial encounter; E11.9 Type 2 diabetes mellitus without complications; E78.5 Hyperlipidemia, unspecified; I10 Essential (primary) hypertension; G47.33 Obstructive sleep apnea (adult) (pediatric); M10.9 Gout, unspecified; Z79.84 Long term (current) use of oral hypoglycemic drugs; Z79.82 Long term (current) use of aspirin
CPT/HCPCS: 82948; 99213; G0463

== ENCOUNTER 2024-04-08 10:57 | Emergency (ER) | payer MEDICARE, MEDICAID, SELFPAY ==
[2024-04-08 11:05] VITALS: BP 127/63; PULSE 62; RESP 16; TEMP 36.8; O2SAT 98
--- NOTE | 2024-04-08 11:27 | ED.SKABFB ---
HPI - Skin/Abscess/Foreign Bdy General Chief complaint: Skin/Abscess/Foreign Body Stated complaint: Rash Time Seen by Provider: 04/08/24 11:19 Source: patient, RN notes reviewed and old records reviewed Mode of arrival: ambulatory Limitations: no limitations History of Present Illness HPI narrative: 73-year-old [facility] with complaint redness, swelling, warmth to right lower leg or 4 days. Patient reports seeing something black under her skin on her lower right anterior lower leg that she picked at last week. patient states that 4 days ago she no dust diffuse redness swelling, warmth to right lower leg extending into right ankle. Patient reports having similar issue last year and being diagnosed with cellulitis. Patient denies fever, recent illness, difficulty ambulating, weakness. Patient in no acute distress. Related Data Home Medications Medication Instructions Recorded Confirmed aspirin 81 mg chewable tablet 81 mg PO DAILY 04/12/20 04/18/23 (Hoang Chewable Low Dose Aspirin) chlorthalidone 50 mg tablet 50 mg PO QAM 04/12/20 04/18/23 lovastatin 10 mg tablet 10 mg PO QPM 04/12/20 04/18/23 metoprolol tartrate 25 mg tablet 25 mg PO BID 04/12/20 04/18/23 nifedipine 90 mg tablet,extended 90 mg PO QAM 04/12/20 04/18/23 release spironolactone 50 mg tablet 50 mg PO QAM 04/12/20 04/18/23 cholecalciferol (vitamin D3) 50 50 mcg PO DAILY 04/13/21 04/18/23 mcg (2,000 unit) capsule gabapentin 300 mg capsule 600 mg PO HS 04/13/21 04/18/23 oxybutynin chloride 10 mg 10 mg PO QAM 04/13/21 04/18/23 tablet,extended release 24 hr famotidine 20 mg tablet 20 mg PO BID 05/12/21 04/18/23 metformin 500 mg tablet,extended 500 mg PO DAILY 05/12/21 04/18/23 release 24 hr topiramate 50 mg PO BID 05/12/21 04/18/23 alendronate 35 mg tablet mg PO 04/08/24 estradiol 0.01% (0.1 mg/gram) vaginal 04/08/24 vaginal cream omeprazole 20 mg capsule,delayed mg 04/08/24 release vibegron 75 mg tablet (Gemtesa) mg 04/08/24 Allergies Allergy/AdvReac Type Severity Reaction Status Date / Time lisinopril Allergy Severe RASH Verified 04/08/24 11:09 Sulfa (Sulfonamide Allergy Severe RASH Verified 04/08/24 11:09 Antibiotics) acetaminophen Allergy Unknown SWELLING & Verified 04/08/24 11:09 ITCHING FEET hydrochlorothiazide Allergy Unknown unknown Verified 04/08/24 11:09 Review of Systems Review of Systems: All systems reviewed & are unremarkable except as noted in HPI and below Constitutional: Constitutional: Reports no additional constitutional complaints Eyes: Eyes: Reports no additional eye complaints ENT: Reports system reviewed and no additional complaints, except as documented Cardiovascular: Cardiovascular: Reports no additional cardiovascular complaints, Denies chest pain and Denies dyspnea Respiratory: Respiratory: Reports no additional respiratory complaints, Denies cough and Denies dyspnea Musculoskeletal: Musculoskeletal: Reports as per HPI and Reports joint swelling ( Right ankle) Integumentary/Breasts: Skin/Breast: Reports as per HPI, Reports erythema, Reports skin pain, Reports skin swelling and Reports wounds Neurologic: Reports system reviewed and no additional complaints, except as documented Psychiatric: Psychiatric: Reports no additional psychiatric complaints [facility] Past Medical History Medical History Gastroesophageal reflux disease Gout Hyperlipidemia Hypertension Obstructive sleep apnea on CPAP Type 2 diabetes mellitus Hemoglobin A1c was 5.9% on 04/25/2021. Urinary, incontinence, stress female Surgical History Surgical History History of arthroscopy of both knees History of herniorrhaphy History of left knee replacement (01/2019) History of right knee joint replacement (04/25/21) S/P total knee arthroplasty Family History Family History (Reviewed
== END 2024-04-08 12:00 | disposition home or self-care (01) ==
PROVIDERS: Emergency Provider Nurse Practitioner Family
DX: L03.115 Cellulitis of right lower limb (principal); K21.9 Gastro-esophageal reflux disease without esophagitis; M10.9 Gout, unspecified; E78.5 Hyperlipidemia, unspecified; I10 Essential (primary) hypertension; E11.9 Type 2 diabetes mellitus without complications; Z96.653 Presence of artificial knee joint, bilateral; Z79.82 Long term (current) use of aspirin
CPT/HCPCS: 99213; G0463

== ENCOUNTER 2024-12-10 09:58 | Emergency (ER) | payer MEDICARE, MEDICAID, SELFPAY ==
[2024-12-10 10:12] VITALS: BP 135/56; PULSE 62; RESP 20; TEMP 37.1; O2SAT 100
--- NOTE | 2024-12-10 10:41 | ED.LOWEXIN ---
HPI - Extremity Injury (Lower) General Chief Complaint: Extremity Injury, Lower Stated Complaint: gout in right foot Source: patient Mode of arrival: ambulatory Limitations: no limitations History of Present Illness HPI Narrative: 73-year-old female with DM, HTN presented for complaint of right foot pain, redness and swelling around the great toe. States she has had the symptoms for over 2 weeks, contacted her PCP on 11/30 prescribed 40 mg of prednisone daily for 5 days, however she says symptoms did not improve but she has yet to contact them again. Says pain is worse with walking, and bed sheets cause pain at night. Endorses neuropathy. Not taking anything else for pain. Related Data Home Medications ?Medication ?Instructions ?Recorded ?Confirmed ?Last Taken ?Type aspirin 81 mg chewable tablet 81 mg PO DAILY 04/12/20 04/23/24 04/19/21 History (Hoang Chewable Low Dose Aspirin) chlorthalidone 50 mg tablet 50 mg PO QAM 04/12/20 04/23/24 04/24/21 History lovastatin 10 mg tablet 10 mg PO QPM 04/12/20 04/23/24 04/24/21 History metoprolol tartrate 25 mg tablet 25 mg PO BID 04/12/20 04/23/24 04/25/21 History nifedipine 90 mg tablet,extended 90 mg PO QAM 04/12/20 04/23/24 04/25/21 History release spironolactone 50 mg tablet 50 mg PO QAM 04/12/20 04/23/24 04/24/21 History cholecalciferol (vitamin D3) 50 50 mcg PO DAILY 04/13/21 04/23/24 04/22/21 History mcg (2,000 unit) capsule gabapentin 300 mg capsule 600 mg PO HS 04/13/21 04/23/24 04/24/21 History oxybutynin chloride 10 mg 10 mg PO QAM 04/13/21 04/23/24 04/24/21 History tablet,extended release 24 hr metformin 500 mg tablet,extended 500 mg PO DAILY 05/12/21 04/23/24 Unknown History release 24 hr topiramate 50 mg PO BID 05/12/21 04/23/24 Unknown History alendronate 35 mg tablet mg PO 04/08/24 04/23/24 Unknown History estradiol 0.01% (0.1 mg/gram) vaginal 04/08/24 04/23/24 Unknown History vaginal cream omeprazole 20 mg capsule,delayed mg 04/08/24 04/23/24 Unknown History release Allergies Allergy/AdvReac Type Severity Reaction Status Date / Time lisinopril Allergy Severe RASH Verified 12/10/24 10:55 Sulfa (Sulfonamide Allergy Severe RASH Verified 12/10/24 10:55 Antibiotics) acetaminophen Allergy Unknown SWELLING & Verified 12/10/24 10:55 ITCHING FEET hydrochlorothiazide Allergy Unknown unknown Verified 12/10/24 10:55 Review of Systems Review of Systems: per HPI All systems reviewed & are unremarkable except as noted in HPI and below PMFSH Past Medical History Medical History Gastroesophageal reflux disease Gout Hyperlipidemia Hypertension Obstructive sleep apnea on CPAP Type 2 diabetes mellitus Hemoglobin A1c was 5.9% on 04/25/2021. Urinary, incontinence, stress female Surgical History Surgical History History of arthroscopy of both knees History of herniorrhaphy History of left knee replacement (01/2019) History of right knee joint replacement (04/25/21) S/P total knee arthroplasty Family History Family History Mother Cerebrovascular accident Hypertension Father Family history of cardiovascular disease Heart attack Sibling Family history of cardiovascular disease Sibling Family history of malignant neoplasm Other Diabetes mellitus Social History Social History Social History: The patient lives in [place] with her ex-. No alcohol, tobacco, or illicit substance abuse. She designates her sister Ludy as her emergency contact. Code status: Full code. [facility] . Unable to access shower with walker. Smoking status: Never smoker Alcohol intake: never Substance use: never Substance use type: does not use Living arrangements: with family Spiritual care concerns: No Comments At time of signature, I have reviewed and agree with nursing past medical, surgical, social and family history unless otherwise noted. Please see nursing chart for further information. There is no relevant family history pertinent to the presenting complaint Exam Narrative: GENERAL: Well-appearing CHEST: Speaks in full sentences. No respiratory distress. HEART: Regular rate and rhythm. Normal and equal peripheral pulses. EXTREMITIES: Right foot 1st MTP with swelling, erythema and point tenderness c/w gout. Foot has normal strength and slightly decreased sensation due to neuropathy, Decreased range of motion of great toe due to pain with movement. No ecchymosis, No open wounds, or obvious deformity; pulse palpable and equal bilaterally, skin warm, dry, pink. Pedal pulse 2+. Capillary refill less than 3 seconds. SKIN: Warm, dry NEURO: Alert and oriented x3. PSYCH: Normal mood and affect Course Course Emergency Course: Patient is aware of diagnosis, understands and agrees to treatment plan. Anticipatory guidance given. Patient agrees to follow-up as directed and is aware of reasons to seek care at the emergency department. Portions of this record may have been created with voice recognition software Level of Care: Express Care Visit Vital Signs Vital signs: Vital Signs Temperature 98.8 F 12/10/24 10:12 Pulse Rate 62 12/10/24 10:12 Respiratory Rate 20 12/10/24 10:12 Blood Pressure 135/56 L 12/10/24 10:12 Pulse Oximetry 100 12/10/24 10:12 Oxygen Delivery Room Air 12/10/24 10:12 Temperature 98.8 F 12/10/24 10:12 Pulse Rate 62 12/10/24 10:12 Respiratory Rate 20 12/10/24 10:12 Blood Pressure 135/56 L 12/10/24 10:12 Pulse Oximetry 100 12/10/24 10:12 Oxygen Delivery Room Air 12/10/24 10:12 Reviewed MDM - Extremity Injury (Lower) MDM Narrative Medical decision making narrative: Discussed physical exam findings Consistent with gout of the right foot. Advised supportive measures and signs/symptoms to go to the ER. Pt is appropriate for outpt treatment and f/u with primary care provider. Differential Diagnosis Differential diagnosis: Likely other (Plantar fasciitis, heel spur, foot strain/sprain, metatarsal fracture, metatarsalgia, mills's neuroma, gout, toe fracture) Discharge Plan Discharge Clinical Impression: Gout Patient Disposition: Home, Self-Care Condition: Stable Instructions: Low Purine Diet (ED), Gout (ED) Additional Instructions: Gout is a form of inflammatory?arthritis that causes pain and swelling in your joints. A buildup of excess uric acid in your body causes gout. Your body naturally makes uric acid when it breaks down chemicals called purines found in certain foods and drinks. Your kidneys usually filter uric acid out of your blood. Gout symptoms come and go in episodes called flares or gout attacks.?Gout attacks usually last a week or two. You might have some flares that last longer than others, and some might cause more severe symptoms. Between attacks, you might not experience any gout symptoms. Risks include: Parent/grandparent with gout Eating a lot of animal proteins ? especially animal flesh, shellfish and foods that contain organ meat. Drinking alcohol regularly. Taking a diuretic medication (water pills). Taking immunosuppressants Take medication as directed. The steroid can raise your blood sugar levels, please monitor levels. Recommend low purine diet Follow up with primary care provider in 1 week Go to the ER for worsening symptoms or concerns Patient Language: Maltese Prescriptions: New methylprednisolone [Medrol (Adalberto)] 4 mg tablets,dose pack See Rx Instructions .ROUTE .COMPLEX Qty: 21 0RF Rx Instructions: orally per package directions No Action alendronate 35 mg tablet PO omeprazole 20 mg capsule,delayed release(DR/EC) estradiol 0.01 % (0.1 mg/gram) cream VAGINAL spironolactone 50 mg tablet 50 mg PO QAM aspirin [Hoang Chewable Aspirin] 81 mg tablet,chewable 81 mg PO DAILY metoprolol tartrate 25 mg tablet 25 mg PO BID lovastatin 10 mg tablet 10 mg PO QPM chlorthalidone 50 mg tablet 50 mg PO QAM Patient Comments: Per patient home medication list Rx Instructions: Per patient home medication list nifedipine 90 mg tablet extended release 90 mg PO QAM Patient Comments: Per patient home medication list Rx Instructions: Per patient home medication list oxybutynin chloride 10 mg tablet extended release 24hr 10 mg PO QAM gabapentin 300 mg capsule 600 mg PO HS cholecalciferol (vitamin D3) 50 mcg (2,000 unit) Capsule 50 mcg PO DAILY metformin 500 mg Tablet Extended Release 24 Hr 500 mg PO DAILY topiramate 50 mg tablet 50 mg PO BID Follow-up/Referrals: PHYSICIAN NOT ON STAFF,NONSTAFF [Primary Care Provider] - Time of Disposition: 11:00
== END 2024-12-10 11:05 | disposition home or self-care (01) ==
PROVIDERS: Emergency Provider Nurse Practitioner Family
DX: M10.9 Gout, unspecified (principal); E11.9 Type 2 diabetes mellitus without complications; I10 Essential (primary) hypertension
CPT/HCPCS: 99213; G0463